=== PATIENT | male | born 1990 | race Caucasian/White ===

== ENCOUNTER 2016-03-23 15:13 | Inpatient (IN) | payer OTHER ==
[2016-03-23 16:39] VITALS: BMI 28.5
--- NOTE | 2016-03-23 17:56 | HP ---
COWS - Scale Resting Pulse: 0= [place] 80 or Below Sweatin=Flushed/Facial Moisture Restless Observation: 1= Difficult to Sit Still Pupil Size: 0= Normal to Room Light Bone or Joint Aches: 2= Severe Diffuse Aches Runny Nose/ Eye Tearin= Runny Nose/Eyes GI Upset > 30mins: 2= Nausea/Diarrhea Tremor Observation: 2= Slight Tremor Visible Yawning Observation: 2= >3x During Session Anxiety or Irritability: 2=Irritable/Anxious Goose Flesh Skin: 3=Piloerection COWS Score: 18 CIWA Score - CIWA Score Nausea/Vomitin-Mild Nausea/No Vomiting Muscle Tremors: 4-Moderate,w/Arms Extend Anxiety: 4-Mod. Anxious/Guarded Agitation: 4-Moderately Restless Paroxysmal Sweats: 3 Orientation: 0-Oriented Tacttile Disturbances: 0-None Auditory Disturbances: 0-None Visual Disturbances: 0-None Headache: 1-Very Mild CIWA-Ar Total Score: 17 Admission ROS S - HPI Chief Complaint: I am here to detox. Allergies/Adverse Reactions: Allergies Allergy/AdvReac Type Severity Reaction Status Date / Time No Known Allergies Allergy Verified 03/23/16 17:12 History of Present Illness: pt is a 25yr old male with a history of heroin and cocaine dependence seeking detox for treatment. Exam Limitations: No Limitations - Ebola screening Have you traveled outside of the country in the last 21 days: No Have you had contact with anyone from an Ebola affected area: No Have you been sick,other than usual withdrawal symptoms: No Do you have a fever: No - Review of Systems Constitutional: Chills, Diaphoresis, Loss of Appetite, Night Sweats, Unintentional Wgt. Loss EENT: reports: Tearing, Nose Congestion Respiratory: reports: No Symptoms reported Cardiac: reports: No Symptoms Reported GI: reports: Constipated, Poor Appetite, Poor Fluid Intake : reports: No Symptoms Reported Musculoskeletal: reports: Back Pain Integumentary: reports: Flushing, Sweating Neuro: reports: Headache, Tingling, Tremors Endocrine: reports: Excessive Sweating, Flushing, Intolerance to Cold, Intolerance to Heat Hematology: reports: No Symptoms Reported Psychiatric: reports: Judgement Intact, Mood/Affect Appropiate, Orientated x3, Agitated, Anxious Other Systems: Reviewed and Negative Patient History - Patient Medical History Hx Anemia: No Hx Asthma: No Hx Chronic Obstructive Pulmonary Disease (COPD): No Hx Cancer: No Hx Cardiac Disorders: No Hx Congestive Heart Failure: No Hx Hypertension: No Hx Hypercholesterolemia: No Hx Pacemaker: No HX Cerebrovascular Accident: No Hx Seizures: No Hx Dementia: No Hx Diabetes: No Hx Gastrointestinal Disorders: No Hx Liver Disease: No Hx Genitourinary Disorders: No Hx Sexually Transmitted Disorders: No Hx Renal Disease (ESRD): No Hx Thyroid Disease: No Hx Human Immunodeficiency Virus (HIV): No Hx Hepatitis C: No Hx Depression: Yes Hx Suicide Attempt: No (denies) Hx Bipolar Disorder: No Hx Schizophrenia: No - Patient Surgical History Past Surgical History: Yes Hx Neurologic Surgery: No Hx Cataract Extraction: No Hx Cardiac Surgery: No Hx Lung Surgery: No Hx Breast Surgery: No Hx Breast Biopsy: No Hx Abdominal Surgery: No Hx Appendectomy: Yes Hx Orthopedic Surgery: Yes (RT HAND) Anesthesia Reaction: No - PPD History Previous Implant?: Yes Documented Results: Negative w/o proof Implanted On Prior R Admission?: No PPD to be Administered?: No - Reproductive History Patient is a Female of Child Bearing Age (11 -55 yrs old): No - Smoking Cessation Smoking history: Current every day smoker Have you smoked in the past 12 months: Yes Aproximately how many cigarettes per day: 20 Hx Chewing Tobacco Use: No Initiated information on smoking cessation: Yes 'Breaking Loose' booklet given: 03/23/16 - Substance & Tx. History Hx Alcohol Use: No Hx Substance Use: Yes Substance Use Type: Cocaine, Heroin, Tranquilizers Hx Substance Use Treatment: Yes - Substances Abused Heroin Route: Injection Frequency: Daily Amount used: 20 BAGS Age of first use: 24 Date of Last Use: 03/22/16 Cocaine Route: Smoking Frequency: Daily Amount used: 3 bags Age of first use: 25 Date of Last Use: 03/23/16 Oxycodone Route: Oral Frequency: Daily Amount used: 200mg Age of first use: 24 Date of Last Use: 03/20/16 Family Disease History - Family Disease History Family History: Denies Admission Physical Exam BHS - Vital Signs Vital Signs: Vital Signs - 24 hr 03/23/16 16:36 Temperature 99.0 F Pulse Rate 77 Respiratory 20 Rate Blood Pressure 129/74 - Physical General Appearance: Yes: Appropriately Dressed, Moderate Distress, Tremorous, Irritable, Sweating, Anxious HEENTM: Yes: Hearing grossly Normal, Normal Voice Respiratory: Yes: Lungs Clear, Normal Breath Sounds, No Respiratory Distress Neck: Yes: No masses,lesions,Nodules Breast: Yes: Within Normal Limits, Breasts Symetrical Cardiology: Yes: Regular Rhythm, Regular Rate, S1, S2 Abdominal: Yes: Normal Bowel Sounds, Non Tender, Soft Genitourinary: Yes: Within Normal Limits Back: Yes: Normal Inspection Musculoskeletal: Yes: full range of Motion Extremities: Yes: Normal Capillary Refill, Tremors Neurological: Yes: Fully Oriented, Alert, Normal Response Integumentary: Yes: Normal Color, Diaphoresis, Track Yang Lymphatic: Yes: Within Normal Limits - Diagnostic (1) Opioid dependence with withdrawal Current Visit: Yes Status: Chronic (2) Cocaine dependence Current Visit: Yes Status: Chronic Qualifiers: Substance use status: uncomplicated Qualified Code(s): F14.20 - Cocaine dependence, uncomplicated (3) Nicotine dependence Current Visit: Yes Status: Chronic Qualifiers: Nicotine product type: cigarettes Substance use status: uncomplicated Qualified Code(s): F17.210 - Nicotine dependence, cigarettes, uncomplicated Cleared for Admission [facility] - Detox or Rehab [facility] Level of Care: Medically Managed Detox Regimen/Protocol: Methadone Urine Drug Screen - Results Drug Screen Negative: No Urine Drug Screen Results: NGHIA-Cocaine, OPI-Opiates, OXY-Oxycodone
[2016-03-23] MEDS ORDERED: P-EPHED 60MG/TRIPROLIDI 2.5MG TABLET PO PRN (18:01)
[2016-03-23] MEDS ORDERED: guaiFENesin/D-METHORPHAN HB 10 ML UNIT-DOSE CUPS PO PRN (18:01)
[2016-03-23] MEDS ORDERED: LOPERAMIDE HCL 2 MG CAPSULE PO PRN (18:01)
[2016-03-23] MEDS ORDERED: MAGNESIUM HYDROX 2400MG/30ML ORAL SUSPENSION 30 ML CUP PO PRN (18:01)
[2016-03-23] MEDS ORDERED: MAG HYDROX/AL HYDROX/SIMETH 30 ML UNIT-DOSE CUP PO PRN (18:01)
[2016-03-23] MEDS ORDERED: IBUPROFEN 600 MG TABLET (FP) PO PRN (18:01)
[2016-03-23] MEDS ORDERED: MENTHOL/PHENOL 1 EACH UD MM PRN (18:01)
[2016-03-23] MEDS ORDERED: hydrOXYzine PAMOATE 50 MG CAPSULE (FP) PO PRN (18:01)
[2016-03-23] MEDS ORDERED: MAGNESIUM CITRATE 300 ML BOTTLE PO PRN (18:01)
[2016-03-23] MEDS ORDERED: TRIMETHOBENZAMIDE HCL 300 MG CAPSULE PO PRN (18:03)
[2016-03-23] MEDS ORDERED: METHADONE HCL 10 MG TABLET (FOR DETOX USE ONLY) PO ONE ×2 (18:30→23:00)
[2016-03-23] MEDS: diazePAM 5 MG TABLET PO PRN ×2 (19:02→23:13)
[2016-03-23] MEDS: diphenhydrAMINE HCL 50 MG CAPSULE PO PRN (22:07)
[2016-03-23] MEDS: THIAMINE HCL 100 MG TABLET (FP) PO SCH (22:07)
[2016-03-23] MEDS: CYCLOBENZAPRINE HCL 10 MG TABLET (FP) PO PRN (22:09)
[2016-03-23] MEDS: NICOTINE POLACRILEX 4 MG GUM BC PRN (23:16)
[2016-03-24] MEDS: diphenhydrAMINE HCL 50 MG CAPSULE PO PRN (01:04)
[2016-03-24] MEDS: ACETAMINOPHEN 325 MG TABLET (FP) PO PRN ×3 (01:05→10:05)
[2016-03-24] MEDS: NICOTINE POLACRILEX 4 MG GUM BC PRN ×3 (01:06→10:04)
[2016-03-24 03:26] LABS: URINE APPEARANCE CLOUDY; URINE BILIRUBIN NEGATIVE (NEGATIVE); URINE BLOOD NEGATIVE (NEGATIVE); URINE COLOR YELLOW; URINE GLUCOSE (UA) NEGATIVE (NEGATIVE); URINE KETONE TRACE (NEGATIVE); URINE LEUK ESTERASE NEGATIVE (NEGATIVE); URINE NITRITE NEGATIVE (NEGATIVE); URINE PROTEIN NEGATIVE (NEGATIVE); URINE UROBILINOGEN NEGATIVE E.U./dl (0.2-1.0)
[2016-03-24] MEDS: diazePAM 5 MG TABLET PO PRN ×3 (06:00→21:08)
--- NOTE | 2016-03-24 09:25 | PN ---
[facility] CIWA - CIWA Score Nausea/Vomitin-Int. Nausea w/Dry Heave Muscle Tremors: 4-Moderate,w/Arms Extend Anxiety: 4-Mod. Anxious/Guarded Agitation: 4-Moderately Restless Paroxysmal Sweats: No Perspiration Orientation: 0-Oriented Tacttile Disturbances: 2-Mild Itch/Numbness/Burn Auditory Disturbances: 0-None Visual Disturbances: 0-None Headache: 3-Moderate CIWA-Ar Total Score: 21 [facility] COWS - Scale Resting Pulse: 0= [place] 80 or Below Sweatin= Chills/Flushing Restless Observation: 1= Difficult to Sit Still Pupil Size: 2= Moderately Dilated Bone or Joint Aches: 2= Severe Diffuse Aches Runny Nose/ Eye Tearin= Nasal Congestion GI Upset > 30mins: 2= Nausea/Diarrhea Tremor Observation of Outstretched Hands: 2= Slight Tremor Visible Yawning Observation: 1= 1-2x During Session Anxiety or Irritability: 1=Feels Anxious/Irritable Goose Flesh Skin: 3=Piloerection COWS Score: 16 [facility] Progress Note (SOAP) Subjective: Sweats, interrupted sleep, nausea, anxiety Objective: Vital Signs Temperature 97.6 F 03/24/16 06:51 Pulse Rate 65 03/24/16 06:51 Respiratory Rate 18 03/24/16 06:51 Blood Pressure 119/84 03/24/16 06:51 O2 Sat by Pulse Oximetry (%) Laboratory Last Values Urine Color Yellow 03/23/16 23:09 Urine Appearance Cloudy 03/23/16 23:09 Urine pH 7.0 (5.0-8.0) 03/23/16 23:09 Ur Specific [place] 1.026 (1.001-1.035) 03/23/16 23:09 Urine Protein Negative (NEGATIVE) 03/23/16 23:09 Urine Glucose (UA) Negative (NEGATIVE) 03/23/16 23:09 Urine Ketones Trace (NEGATIVE) H 03/23/16 23:09 Urine Blood Negative (NEGATIVE) 03/23/16 23:09 Urine Nitrite Negative (NEGATIVE) 03/23/16 23:09 Urine Bilirubin Negative (NEGATIVE) 03/23/16 23:09 Urine Urobilinogen Negative E.U./dl (0.2-1.0) 03/23/16 23:09 Ur Leukocyte Esterase Negative (NEGATIVE) 03/23/16 23:09 Labs noted Assessment: Withdrawal Symptoms Plan: Continue with Detox Protocol
[2016-03-24] MEDS ORDERED: METHADONE HCL 10 MG TABLET (FOR DETOX USE ONLY) PO ONE (10:00)
[2016-03-24] MEDS: PRENATAL VITAMINS W/ FOLIC ACID TABLET (FP) PO SCH (10:03)
[2016-03-24] MEDS: NICOTINE 21 MG/24 HOURS TOPICAL PATCH TD SCH (10:03)
[2016-03-24 11:18] LABS: MCH 26.9 pg (25.7-33.7); MCHC 32.8 g/dl (32.0-35.9); MEAN CELL VOLUME 81.9 fl (80-96); MEAN PLT VOLUME 9.6 fl (7.5-11.1); PLATELET COUNT 163 K/MM3 (134-434); RDW 13.2 % (11.9-15.9); WHITE BLOOD COUNT 5.2 K/mm3 (4.0-10.0)
[2016-03-24 11:22] LABS: ALBUMIN 4.3 g/dl (3.4-5.0); ALK PHOS 59 U/L (45-117); ANION GAP 7 (8-16); BILIRUBIN,TOTAL 0.6 mg/dL (0.2-1.0); CALCIUM 9.4 mg/dL (8.5-10.1); CO2 28 mmol/L (21-32); CREATININE 0.9 mg/dL (0.7-1.3); GLUCOSE,RANDOM 85 mg/dL (74-106); SGOT/AST 11 U/L (15-37); SGPT/ALT 27 U/L (12-78)
--- NOTE | 2016-03-24 13:38 | EKG ---
Test Reason : Blood Pressure : / mmHG Vent. Rate : 065 BPM Atrial Rate : 065 BPM P-R Int : 144 ms QRS Dur : 084 ms QT Int : 416 ms P-R-T Axes : 012 061 031 degrees QTc Int : 432 ms NORMAL SINUS RHYTHM POOR DATA QUALITY, INTERPRETATION MAY BE ADVERSELY AFFECTED NO PREVIOUS ECGS AVAILABLE Confirmed by YOVANI HAMMOND MD ([id number]) on 03/24/2016 1:37:53 PM Referred By: Parish Crump Confirmed By:YOVANI HAMMOND MD
[2016-03-24] MEDS: cloNIDine HCL 0.1 MG TABLET PO PRN (21:08)
[2016-03-24] MEDS: THIAMINE HCL 100 MG TABLET (FP) PO SCH (21:08)
[2016-03-24] MEDS: CYCLOBENZAPRINE HCL 10 MG TABLET (FP) PO PRN (21:08)
[2016-03-25] MEDS: diazePAM 5 MG TABLET PO PRN ×4 (03:11→22:27)
[2016-03-25] MEDS: cloNIDine HCL 0.1 MG TABLET PO PRN ×2 (03:11→22:28)
[2016-03-25] MEDS: ACETAMINOPHEN 325 MG TABLET (FP) PO PRN (03:11)
[2016-03-25] MEDS ORDERED: METHADONE HCL 5 MG TABLET (FOR DETOX USE ONLY) PO ONE (10:00)
[2016-03-25] MEDS: PRENATAL VITAMINS W/ FOLIC ACID TABLET (FP) PO SCH (10:04)
[2016-03-25] MEDS: NICOTINE 21 MG/24 HOURS TOPICAL PATCH TD SCH (10:05)
[2016-03-25] MEDS: CYCLOBENZAPRINE HCL 10 MG TABLET (FP) PO PRN ×2 (10:07→22:27)
--- NOTE | 2016-03-25 13:31 | PN ---
S COWS - Scale Resting Pulse: 0= [place] 80 or Below Sweatin=Flushed/Facial Moisture Restless Observation: 3= Extraneous Movement Pupil Size: 0= Normal to Room Light Bone or Joint Aches: 2= Severe Diffuse Aches Runny Nose/ Eye Tearin= Runny Nose/Eyes GI Upset > 30mins: 3= Vomiting/Diarrhea Tremor Observation of Outstretched Hands: 2= Slight Tremor Visible Yawning Observation: 0= None Anxiety or Irritability: 2=Irritable/Anxious Goose Flesh Skin: 0=Smooth Skin COWS Score: 16 [facility] Progress Note (SOAP) Subjective: Tremor, sweating, nausea, vomiting, abdominal cramps, interrupted sleep ( benadryl doesn't work, wants ambien) Objective: Last Vital Signs Temp Pulse Resp BP Pulse Ox 96.8 F L 79 18 99/65 03/25/16 13:22 03/25/16 13:22 03/25/16 13:22 03/25/16 13:22 Laboratory Tests 03/23/16 03/24/16 03/24/16 23:09 07:50 07:50 WBC 5.2 RBC 5.34 Hgb 14.4 Hct 43.8 MCV 81.9 MCHC 32.8 RDW 13.2 Plt Count 163 MPV 9.6 Sodium 139 Potassium 4.1 Chloride 104 Carbon Dioxide 28 Anion Gap 7 L BUN 15 Creatinine 0.9 Creat Clearance w eGFR > 60 Random Glucose 85 Calcium 9.4 Total Bilirubin 0.6 AST 11 L ALT 27 Alkaline Phosphatase 59 Total Protein 7.0 Albumin 4.3 Urine Color Yellow Urine Appearance Cloudy Urine pH 7.0 Ur Specific [place] 1.026 Urine Protein Negative Urine Glucose (UA) Negative Urine Ketones Trace H Urine Blood Negative Urine Nitrite Negative Urine Bilirubin Negative Urine Urobilinogen Negative Ur Leukocyte Esterase Negative RPR Titer 03/24/16 07:50 WBC RBC Hgb Hct MCV MCHC RDW Plt Count MPV Sodium Potassium Chloride Carbon Dioxide Anion Gap BUN Creatinine Creat Clearance w eGFR Random Glucose Calcium Total Bilirubin AST ALT Alkaline Phosphatase Total Protein Albumin Urine Color Urine Appearance Urine pH Ur Specific [place] Urine Protein Urine Glucose (UA) Urine Ketones Urine Blood Urine Nitrite Urine Bilirubin Urine Urobilinogen Ur Leukocyte Esterase RPR Titer Nonreactive Labs noted Assessment: 03/25/16 13:33 Withdrawal symptoms Plan: Continue detox, encouraged to drink more water
[2016-03-25] MEDS: THIAMINE HCL 100 MG TABLET (FP) PO SCH (22:27)
[2016-03-25] MEDS: ZOLPIDEM TARTRATE 5 MG TABLET PO PRN (22:28)
[2016-03-25] MEDS: NICOTINE POLACRILEX 4 MG GUM BC PRN (22:33)
[2016-03-26] MEDS: diazePAM 5 MG TABLET PO PRN (05:52)
[2016-03-26] MEDS: cloNIDine HCL 0.1 MG TABLET PO PRN ×2 (05:53→22:15)
[2016-03-26] MEDS ORDERED: METHADONE HCL 5 MG TABLET (FOR DETOX USE ONLY) PO ONE (10:00)
--- NOTE | 2016-03-26 10:01 | PN ---
[facility] Progress Note (SOAP) Subjective: Sweating,interrupted sleep,restless. Objective: 03/26/16 10:00 Vital Signs - 8 hr 03/26/16 03/26/16 03:25 06:18 Temperature 96.6 F L Pulse Rate 79 Respiratory 18 16 Rate Blood Pressure 107/69 Laboratory Tests 03/23/16 03/24/16 03/24/16 23:09 07:50 07:50 WBC 5.2 RBC 5.34 Hgb 14.4 Hct 43.8 MCV 81.9 MCHC 32.8 RDW 13.2 Plt Count 163 MPV 9.6 Sodium 139 Potassium 4.1 Chloride 104 Carbon Dioxide 28 Anion Gap 7 L BUN 15 Creatinine 0.9 Creat Clearance w eGFR > 60 Random Glucose 85 Calcium 9.4 Total Bilirubin 0.6 AST 11 L ALT 27 Alkaline Phosphatase 59 Total Protein 7.0 Albumin 4.3 Urine Color Yellow Urine Appearance Cloudy Urine pH 7.0 Ur Specific [place] 1.026 Urine Protein Negative Urine Glucose (UA) Negative Urine Ketones Trace H Urine Blood Negative Urine Nitrite Negative Urine Bilirubin Negative Urine Urobilinogen Negative Ur Leukocyte Esterase Negative RPR Titer 03/24/16 07:50 WBC RBC Hgb Hct MCV MCHC RDW Plt Count MPV Sodium Potassium Chloride Carbon Dioxide Anion Gap BUN Creatinine Creat Clearance w eGFR Random Glucose Calcium Total Bilirubin AST ALT Alkaline Phosphatase Total Protein Albumin Urine Color Urine Appearance Urine pH Ur Specific [place] Pool Urine Protein Urine Glucose (UA) Urine Ketones Urine Blood Urine Nitrite Urine Bilirubin Urine Urobilinogen Ur Leukocyte Esterase RPR Titer Nonreactive labs noted Assessment: 03/26/16 10:00 withdrawal sx. Plan: continue detox
[2016-03-26] MEDS: NICOTINE 21 MG/24 HOURS TOPICAL PATCH TD SCH (10:03)
[2016-03-26] MEDS: PRENATAL VITAMINS W/ FOLIC ACID TABLET (FP) PO SCH (10:03)
[2016-03-26] MEDS: NICOTINE POLACRILEX 4 MG GUM BC PRN ×2 (18:38→22:16)
[2016-03-26] MEDS: ZOLPIDEM TARTRATE 5 MG TABLET PO PRN (22:15)
[2016-03-26] MEDS: CYCLOBENZAPRINE HCL 10 MG TABLET (FP) PO PRN (22:15)
[2016-03-26] MEDS: THIAMINE HCL 100 MG TABLET (FP) PO SCH (22:15)
[2016-03-27] MEDS: CYCLOBENZAPRINE HCL 10 MG TABLET (FP) PO PRN (06:12)
[2016-03-27] MEDS: cloNIDine HCL 0.1 MG TABLET PO PRN (06:12)
[2016-03-27] MEDS ORDERED: METHADONE HCL 10 MG TABLET (FOR DETOX USE ONLY) PO ONE (10:00)
[2016-03-27] MEDS: PRENATAL VITAMINS W/ FOLIC ACID TABLET (FP) PO SCH (10:16)
[2016-03-27] MEDS: NICOTINE POLACRILEX 4 MG GUM BC PRN ×2 (10:17→22:08)
[2016-03-27] MEDS: NICOTINE 21 MG/24 HOURS TOPICAL PATCH TD SCH (10:17)
--- NOTE | 2016-03-27 10:42 | PN ---
[facility] Progress Note (SOAP) Subjective: ANXIETY,MUSCLE ACHES/CRAMPS, FATIGUE. Objective: 03/27/16 10:41 Vital Signs Temperature 98.0 F 03/27/16 09:38 Pulse Rate 81 03/27/16 09:38 Respiratory Rate 19 03/27/16 09:38 Blood Pressure 93/59 03/27/16 09:38 O2 Sat by Pulse Oximetry (%) Assessment: 03/27/16 10:42 WITHDRAWAL SX Plan: CONTINUE DETOX INCREASE PO FLUIDS.
[2016-03-27] MEDS ORDERED: ZOLPIDEM TARTRATE 10 MG TABLET (PARK CARE ONLY) PO PRN (18:58)
[2016-03-27] MEDS: THIAMINE HCL 100 MG TABLET (FP) PO SCH (22:06)
[2016-03-28] MEDS: CYCLOBENZAPRINE HCL 10 MG TABLET (FP) PO PRN (01:48)
[2016-03-28] MEDS ORDERED: METHADONE HCL 5 MG TABLET (FOR DETOX USE ONLY) PO ONE (06:00)
[2016-03-28 06:39] VITALS: BP 106/63; PULSE 76; TEMP 96.6
--- NOTE | 2016-03-28 09:42 | DS ---
[facility] Detox Discharge Summary Admission Date: 03/23/16 Discharge Date: 03/28/16 - History Present History: Cocaine Dependence, Opioid Dependence Additional Comments: PT COMPLETED DETOX. ALERT O X 3. NAD. Pertinent Past History: UNREMARKABLE - Physical Exam Results Vital Signs: Vital Signs Temperature 96.6 F L 03/28/16 06:38 Pulse Rate 76 03/28/16 06:38 Respiratory Rate 18 03/28/16 06:38 Blood Pressure 106/63 03/28/16 06:38 O2 Sat by Pulse Oximetry (%) Pertinent Admission Physical Exam Findings: WITHDRAWAL SX Laboratory Last Values WBC 5.2 K/mm3 (4.0-10.0) 03/24/16 07:50 RBC 5.34 M/mm3 (4.00-5.60) 03/24/16 07:50 Hgb 14.4 GM/dL (11.7-16.9) 03/24/16 07:50 Hct 43.8 % (35.4-49) 03/24/16 07:50 MCV 81.9 fl (80-96) 03/24/16 07:50 MCHC 32.8 g/dl (32.0-35.9) 03/24/16 07:50 RDW 13.2 % (11.9-15.9) 03/24/16 07:50 Plt Count 163 K/MM3 (134-434) 03/24/16 07:50 MPV 9.6 fl (7.5-11.1) 03/24/16 07:50 Sodium 139 mmol/L (136-145) 03/24/16 07:50 Potassium 4.1 mmol/L (3.5-5.1) 03/24/16 07:50 Chloride 104 mmol/L (98-107) 03/24/16 07:50 Carbon Dioxide 28 mmol/L (21-32) 03/24/16 07:50 Anion Gap 7 (8-16) L 03/24/16 07:50 BUN 15 mg/dL (7-18) 03/24/16 07:50 Creatinine 0.9 mg/dL (0.7-1.3) 03/24/16 07:50 Creat Clearance w eGFR > 60 (>60) 03/24/16 07:50 Random Glucose 85 mg/dL (74-106) 03/24/16 07:50 Calcium 9.4 mg/dL (8.5-10.1) 03/24/16 07:50 Total Bilirubin 0.6 mg/dL (0.2-1.0) 03/24/16 07:50 AST 11 U/L (15-37) L 03/24/16 07:50 ALT 27 U/L (12-78) 03/24/16 07:50 Alkaline Phosphatase 59 U/L (45-117) 03/24/16 07:50 Total Protein 7.0 g/dl (6.4-8.2) 03/24/16 07:50 Albumin 4.3 g/dl (3.4-5.0) 03/24/16 07:50 Urine Color Yellow 03/23/16 23:09 Urine Appearance Cloudy 03/23/16 23:09 Urine pH 7.0 (5.0-8.0) 03/23/16 23:09 Ur Specific [place] 1.026 (1.001-1.035) 03/23/16 23:09 Urine Protein Negative (NEGATIVE) 03/23/16 23:09 Urine Glucose (UA) Negative (NEGATIVE) 03/23/16 23:09 Urine Ketones Trace (NEGATIVE) H 03/23/16 23:09 Urine Blood Negative (NEGATIVE) 03/23/16 23:09 Urine Nitrite Negative (NEGATIVE) 03/23/16 23:09 Urine Bilirubin Negative (NEGATIVE) 03/23/16 23:09 Urine Urobilinogen Negative E.U./dl (0.2-1.0) 03/23/16 23:09 Ur Leukocyte Esterase Negative (NEGATIVE) 03/23/16 23:09 RPR Titer Nonreactive (NONREACTIVE) 03/24/16 07:50 - Treatment Hospital Course: Detox Protocol Followed, Detoxed Safely, Responded well, Discharged Condition Good - Medication Discharge Medications: Ambulatory Orders NK [No Known Home Medication] 03/23/16 - Diagnosis (1) Cocaine dependence Current Visit: Yes Status: Acute Qualifiers: Substance use status: uncomplicated Qualified Code(s): F14.20 - Cocaine dependence, uncomplicated (2) Nicotine dependence Current Visit: Yes Status: Chronic Qualifiers: Nicotine product type: cigarettes Substance use status: uncomplicated Qualified Code(s): F17.210 - Nicotine dependence, cigarettes, uncomplicated (3) Opioid dependence with withdrawal Current Visit: Yes Status: Acute - AMA Did Patient Leave Against Medical Advice: No
== END 2016-03-28 09:19 | disposition home or self-care (01) | DRG 773 ==
LOC: YASAS 15:13 → Y3N 18:20
PROVIDERS: ADMIT Internal Medicine; ATTEND Internal Medicine
PROC: HZ2ZZZZ Detoxification Services for Substance Abuse Treatment (ICD-10-PCS; principal; 2016-03-28)
DX: F11.23 Opioid dependence with withdrawal (principal); F14.20 Cocaine dependence, uncomplicated; F17.210 Nicotine dependence, cigarettes, uncomplicated
CPT/HCPCS: 36415; 80053; 81003; 85027; 86593; 93005; 93010

== ENCOUNTER 2016-05-03 12:27 | Inpatient (IN) | payer OTHER ==
[2016-05-03 13:52] VITALS: BMI 28.3
--- NOTE | 2016-05-03 16:31 | HP ---
CIWA Score - CIWA Score Nausea/Vomitin Muscle Tremors: 3 Anxiety: 3 Agitation: 3 Paroxysmal Sweats: 3 Orientation: 0-Oriented Tacttile Disturbances: 2-Mild Itch/Numbness/Burn Auditory Disturbances: 2-Mild Harshness/Frighten Visual Disturbances: 2-Mild Sensitivity Headache: 2-Mild CIWA-Ar Total Score: 23 Admission ROS BHS - HPI Chief Complaint: I NEED HELP TO STOP DRINKING ALCOHOL AND DRUGS Allergies/Adverse Reactions: Allergies Allergy/AdvReac Type Severity Reaction Status Date / Time No Known Allergies Allergy Verified 05/03/16 16:38 History of Present Illness: THIS 25 YEARS OLD MALE WITH ALCOHOL DEPENDENCE,DSA,HEORIN,COCAINE,WITHDRAWAL SYMPTOM,LAST DETOX [facility] T0 03/23/16 TO 03/28/16 MMTP 80 MGS/DAY LAST MEDICATED TODAY SYNCOPE NICOTINE DEPENDENCE LONGEST PERIOD OF SOBRIETY 3 MONTHS ANXIETY AND DEPRESSION Exam Limitations: No Limitations - Ebola screening Have you traveled outside of the country in the last 21 days: No Have you had contact with anyone from an Ebola affected area: No Have you been sick,other than usual withdrawal symptoms: No - Review of Systems Constitutional: Chills, Diaphoresis, Loss of Appetite, Malaise, Night Sweats, Changes in sleep, Unintentional Wgt. Loss EENT: reports: Tearing, Nose Congestion Respiratory: reports: No Symptoms reported GI: reports: Diarrhea, Nausea, Vomiting, Abdominal cramping : reports: No Symptoms Reported Musculoskeletal: reports: Back Pain, Joint Pain, Muscle Pain, Joint Stiffness Integumentary: reports: Dryness Neuro: reports: Headache, Tremors Endocrine: reports: No Symptoms Reported Hematology: reports: No Symptoms Reported Psychiatric: reports: No Sypmtoms Reported, Judgement Intact, Mood/Affect Appropiate, Orientated x3, Anxious, Depressed Patient History - Patient Medical History Hx Anemia: No Hx Asthma: No Hx Chronic Obstructive Pulmonary Disease (COPD): No Hx Cancer: No Hx Cardiac Disorders: No Hx Congestive Heart Failure: No Hx Hypertension: No Hx Hypercholesterolemia: No Hx Pacemaker: No HX Cerebrovascular Accident: No Hx Seizures: No Hx Dementia: No Hx Diabetes: No Hx Gastrointestinal Disorders: No Hx Liver Disease: No Hx Genitourinary Disorders: No Hx Sexually Transmitted Disorders: No Hx Renal Disease (ESRD): No Hx Thyroid Disease: No Hx Human Immunodeficiency Virus (HIV): No (LAST 03/30 NEGATIVE) Hx Hepatitis C: No Hx Depression: Yes (ANXIETY,INSOMNIA) Hx Suicide Attempt: No (denies) Hx Bipolar Disorder: No Hx Schizophrenia: No Other Medical History: NO SUICIDAL,NO HOMICIDAL - Patient Surgical History Past Surgical History: Yes Hx Neurologic Surgery: No Hx Cataract Extraction: No Hx Cardiac Surgery: No Hx Lung Surgery: No Hx Breast Surgery: No Hx Breast Biopsy: No Hx Abdominal Surgery: No Hx Appendectomy: Yes (AT AGE 20) Hx Orthopedic Surgery: Yes (RT HAND 2015) Anesthesia Reaction: No - PPD History Previous Implant?: Yes Documented Results: Negative w/proof Date: 03/25/16 Results: 0 MM PPD to be Administered?: No - Smoking Cessation Smoking history: Current every day smoker Have you smoked in the past 12 months: Yes Aproximately how many cigarettes per day: 20 Hx Chewing Tobacco Use: No Initiated information on smoking cessation: Yes 'Breaking Loose' booklet given: 05/03/16 - Substance & Tx. History Hx Alcohol Use: Yes Hx Substance Use: No Substance Use Type: Alcohol, Cocaine, Heroin Hx Substance Use Treatment: Yes ([facility] 03/23/16 TO 03/28/16) - Substances Abused Alcohol Route: Oral Frequency: Daily Amount used: 1/5TH OF SCOTCH/6 PACKS OF 12 OZS OF BEER Age of first use: 15 Date of Last Use: 05/03/16 Cocaine Route: Inhalation Frequency: 3-6 times per week Amount used: 50$ Age of first use: 21 Date of Last Use: 05/01/16 Heroin Route: Injection Frequency: Daily Amount used: 10 BAGS Age of first use: 24 Date of Last Use: 05/03/16 Family Disease History - Family Disease History Family Disease History: Heart Disease: Father ([place] ) Admission Physical Exam S - Vital Signs Vital Signs: Vital Signs - 24 hr 05/03/16 13:49 Temperature 98.0 F Pulse Rate 63 Respiratory 18 Rate Blood Pressure 131/80 - Physical General Appearance: Yes: Moderate Distress, Tremorous, Irritable, Sweating, Anxious HEENTM: Yes: BEATRIZ, Pharynx Normal, Nasal Congestion Respiratory: Yes: Lungs Clear, Normal Breath Sounds, No Respiratory Distress Neck: Yes: Within Normal Limits, Supple, Trachea in good position Breast: Yes: Within Normal Limits Cardiology: Yes: Within Normal Limits, Regular Rhythm, Regular Rate, S1, S2 Abdominal: Yes: Within Normal Limits, Normal Bowel Sounds, Non Tender, Flat, Soft Genitourinary: Yes: Within Normal Limits Back: Yes: Muscle Spasm Musculoskeletal: Yes: Back pain, Joint Stiffness, Muscle Pain Extremities: Yes: Normal Range of Motion, Tremors Neurological: Yes: Within Normal Limits, certified first assistant II-XII NML intact, Fully Oriented, Alert, Motor Strength 5/5 Integumentary: Yes: Dry Lymphatic: Yes: Within Normal Limits - Diagnostic (1) Alcohol dependence with uncomplicated withdrawal Current Visit: Yes Status: Acute (2) Cocaine dependence Current Visit: No Status: Acute Qualifiers: Substance use status: uncomplicated Qualified Code(s): F14.20 - Cocaine dependence, uncomplicated (3) Nicotine dependence Current Visit: No Status: Chronic Qualifiers: Nicotine product type: cigarettes Substance use status: uncomplicated Qualified Code(s): F17.210 - Nicotine dependence, cigarettes, uncomplicated (4) Methadone maintenance therapy patient Current Visit: Yes Status: Acute (5) Opioid dependence Current Visit: Yes Status: Acute (6) Syncope Current Visit: Yes Status: Acute (7) Anxiety and depression Current Visit: Yes Status: Acute Cleared for Admission [facility] - Detox or Rehab [facility] Level of Care: Medically Managed Detox Regimen/Protocol: Librium [facility] Breath Alcohol Content Breath Alcohol Content: 0.032 Urine Drug Screen - Results Drug Screen Negative: No Urine Drug Screen Results: NGHIA-Cocaine, OPI-Opiates, BZO-Benzodiazepines, MTD- Methadone
[2016-05-03] MEDS ORDERED: IBUPROFEN 400 MG TABLET (FP) PO PRN (16:45)
[2016-05-03] MEDS ORDERED: MENTHOL/PHENOL 1 EACH UD MM PRN (16:45)
[2016-05-03] MEDS ORDERED: MAGNESIUM CITRATE 300 ML BOTTLE PO PRN (16:45)
[2016-05-03] MEDS ORDERED: ACETAMINOPHEN 325 MG TABLET (FP) PO PRN (16:45)
[2016-05-03] MEDS ORDERED: MAG HYDROX/AL HYDROX/SIMETH 30 ML UNIT-DOSE CUP PO PRN (16:45)
[2016-05-03] MEDS ORDERED: MAGNESIUM HYDROX 2400MG/30ML ORAL SUSPENSION 30 ML CUP PO PRN (16:45)
[2016-05-03] MEDS ORDERED: guaiFENesin/D-METHORPHAN HB 10 ML UNIT-DOSE CUPS PO PRN (16:45)
[2016-05-03] MEDS ORDERED: LOPERAMIDE HCL 2 MG CAPSULE PO PRN (16:45)
[2016-05-03] MEDS ORDERED: P-EPHED 60MG/TRIPROLIDI 2.5MG TABLET PO PRN (16:45)
[2016-05-03] MEDS ORDERED: diphenhydrAMINE HCL 50 MG CAPSULE PO PRN (16:45)
[2016-05-03] MEDS: chlordiazePOXIDE HCL 25 MG CAPSULE PO PRN (20:47)
[2016-05-03] MEDS ORDERED: chlordiazePOXIDE HCL 25 MG CAPSULE PO ONE (21:00)
[2016-05-03] MEDS: cloNIDine HCL 0.1 MG TABLET PO SCH (22:41)
[2016-05-03] MEDS: chlordiazePOXIDE HCL 25 MG CAPSULE PO SCH (22:41)
[2016-05-03] MEDS: THIAMINE HCL 100 MG TABLET (FP) PO SCH (22:47)
[2016-05-04 00:38] LABS: URINE APPEARANCE CLEAR; URINE BILIRUBIN NEGATIVE (NEGATIVE); URINE BLOOD NEGATIVE (NEGATIVE); URINE COLOR YELLOW; URINE GLUCOSE (UA) NEGATIVE (NEGATIVE); URINE KETONE NEGATIVE (NEGATIVE); URINE LEUK ESTERASE NEGATIVE (NEGATIVE); URINE NITRITE NEGATIVE (NEGATIVE); URINE PROTEIN NEGATIVE (NEGATIVE); URINE UROBILINOGEN NEGATIVE E.U./dl (0.2-1.0)
[2016-05-04] MEDS: chlordiazePOXIDE HCL 25 MG CAPSULE PO SCH ×4 (05:19→22:49)
[2016-05-04] MEDS ORDERED: METHADONE HCL 40 MG DISPERSABLE TABLET PO ONE (08:00)
[2016-05-04 10:15] LABS: MCH 26.8 pg (25.7-33.7); MCHC 32.9 g/dl (32.0-35.9); MEAN CELL VOLUME 81.5 fl (80-96); MEAN PLT VOLUME 10.4 fl (7.5-11.1); PLATELET COUNT 171 K/MM3 (134-434)
--- NOTE | 2016-05-04 10:23 | EKG ---
Test Reason : Blood Pressure : / mmHG Vent. Rate : 056 BPM Atrial Rate : 056 BPM P-R Int : 148 ms QRS Dur : 090 ms QT Int : 448 ms P-R-T Axes : 025 063 043 degrees QTc Int : 432 ms SINUS BRADYCARDIA WHEN COMPARED WITH ECG OF 23-MAR-2016 19:09, NO SIGNIFICANT CHANGE WAS FOUND Confirmed by YOVANI HAMMOND MD ([id number]) on 05/04/2016 10:23:00 AM Referred By: Confirmed By:YOVANI HAMMOND MD
[2016-05-04] MEDS: cloNIDine HCL 0.1 MG TABLET PO SCH ×2 (10:35→22:49)
[2016-05-04] MEDS: NICOTINE POLACRILEX 2 MG GUM BC PRN ×3 (10:35→22:52)
[2016-05-04] MEDS: PRENATAL VITAMINS W/ FOLIC ACID TABLET (FP) PO SCH (10:35)
[2016-05-04 11:47] LABS: ALBUMIN 4.6 g/dl (3.4-5.0); ALK PHOS 72 U/L (45-117); ANION GAP 12 (8-16); BILIRUBIN,TOTAL 0.7 mg/dL (0.2-1.0); CALCIUM 9.5 mg/dL (8.5-10.1); CO2 26 mmol/L (21-32); CREATININE 0.8 mg/dL (0.7-1.3); GLUCOSE,RANDOM 78 mg/dL (74-106); SGOT/AST 19 U/L (15-37); SGPT/ALT 39 U/L (12-78); TOT PROT 7.6 g/dl (6.4-8.2)
--- NOTE | 2016-05-04 12:47 | PN ---
[facility] CIWA - CIWA Score Nausea/Vomitin Muscle Tremors: 3 Anxiety: 3 Agitation: 2 Paroxysmal Sweats: 1-Minimal Palms Moist Orientation: 0-Oriented Tacttile Disturbances: 1-Very Mild Itch/Numbness Auditory Disturbances: 1-Very Mild Visual Disturbances: 1-Very Mild Sensitivity Headache: 2-Mild CIWA-Ar Total Score: 17 S Progress Note (SOAP) Subjective: ALERT,IRRITABLE,ANXIOUS,INTERRUPTED SLEEP,TREMOR,PAIN IN THE BODY AND BACK Objective: 05/04/16 12:46 Vital Signs Temperature 99.3 F 05/04/16 10:15 Pulse Rate 79 05/04/16 10:15 Respiratory Rate 0 L 05/04/16 10:15 Blood Pressure 105/67 05/04/16 10:15 O2 Sat by Pulse Oximetry (%) EKG SINUS BRADYCARDIA 57 /MIN NO CHEST PAIN,NO SOB,NO DIZZINESS Laboratory Last Values WBC 8.0 K/mm3 (4.0-10.0) D 05/04/16 06:00 RBC 5.58 M/mm3 (4.00-5.60) 05/04/16 06:00 Hgb 15.0 GM/dL (11.7-16.9) 05/04/16 06:00 Hct 45.5 % (35.4-49) 05/04/16 06:00 MCV 81.5 fl (80-96) 05/04/16 06:00 MCHC 32.9 g/dl (32.0-35.9) 05/04/16 06:00 RDW 13.0 % (11.9-15.9) 05/04/16 06:00 Plt Count 171 K/MM3 (134-434) 05/04/16 06:00 MPV 10.4 fl (7.5-11.1) 05/04/16 06:00 Sodium 141 mmol/L (136-145) 05/04/16 06:00 Potassium 4.5 mmol/L (3.5-5.1) 05/04/16 06:00 Chloride 103 mmol/L (98-107) 05/04/16 06:00 Carbon Dioxide 26 mmol/L (21-32) 05/04/16 06:00 Anion Gap 12 (8-16) 05/04/16 06:00 BUN 15 mg/dL (7-18) 05/04/16 06:00 Creatinine 0.8 mg/dL (0.7-1.3) 05/04/16 06:00 Creat Clearance w eGFR > 60 (>60) 05/04/16 06:00 Random Glucose 78 mg/dL (74-106) 05/04/16 06:00 Calcium 9.5 mg/dL (8.5-10.1) 05/04/16 06:00 Total Bilirubin 0.7 mg/dL (0.2-1.0) 05/04/16 06:00 AST 19 U/L (15-37) D 05/04/16 06:00 ALT 39 U/L (12-78) D 05/04/16 06:00 Alkaline Phosphatase 72 U/L (45-117) D 05/04/16 06:00 Total Protein 7.6 g/dl (6.4-8.2) 05/04/16 06:00 Albumin 4.6 g/dl (3.4-5.0) 05/04/16 06:00 Urine Color Yellow 05/03/16 23:30 Urine Appearance Clear 05/03/16 23:30 Urine pH 5.0 (5.0-8.0) D 05/03/16 23:30 Ur Specific [place] 1.027 (1.001-1.035) 05/03/16 23:30 Urine Protein Negative (NEGATIVE) 05/03/16 23:30 Urine Glucose (UA) Negative (NEGATIVE) 05/03/16 23:30 Urine Ketones Negative (NEGATIVE) 05/03/16 23:30 Urine Blood Negative (NEGATIVE) 05/03/16 23:30 Urine Nitrite Negative (NEGATIVE) 05/03/16 23:30 Urine Bilirubin Negative (NEGATIVE) 05/03/16 23:30 Urine Urobilinogen Negative E.U./dl (0.2-1.0) 05/03/16 23:30 Ur Leukocyte Esterase Negative (NEGATIVE) 05/03/16 23:30 RPR Titer Nonreactive (NONREACTIVE) 05/04/16 06:00 Assessment: 05/04/16 12:47 WITHDRAWAL SYMPTOM Plan: CONTINUE DETOX
[2016-05-04] MEDS: CYCLOBENZAPRINE HCL 10 MG TABLET (FP) PO PRN (13:22)
[2016-05-04] MEDS: chlordiazePOXIDE HCL 25 MG CAPSULE PO PRN (13:22)
--- NOTE | 2016-05-04 15:56 | CONSULT ---
[facility] Psychiatric Consult - Data Date of interview: 05/04/16 Admission source: [facility] Identifying data: Readmission to [facility] for this 25 y/o male seeking detox treatment for alcohol,cocaine and heroin dependence.Patient is single without children,domiciled,unemployed and dependent on relatives for financial support. Substance Abuse History: - Smoking Cessation. Smoking history: Current every day smoker. Have you smoked in the past 12 months: Yes. Aproximately how many cigarettes per day: 20. Hx Chewing Tobacco Use: No. Initiated information on smoking cessation: Yes. 'Breaking Loose' booklet given: 05/03/16. - Substance & Tx. History. Hx Alcohol Use: Yes. Hx Substance Use: No. Substance Use Type : Alcohol, Cocaine, Heroin. Hx Substance Use Treatment: Yes ([facility] 03/23/16 TO 03/28/16). - Substances Abused. Alcohol. Route: Oral. Frequency: Daily. Amount used: 1/5TH OF SCOTCH/6 PACKS OF 12 OZS OF BEER. Age of first use: 15. Date of Last Use: 05/03/16. Cocaine. Route: Inhalation. Frequency: 3-6 times per week. Amount used: 50$. Age of first use: 21. Date of Last Use: . Heroin. Route: Injection. Frequency: Daily. Amount used: 10 BAGS. Age of first use: 24. Date of Last Use: 05/03/16. Confirmed by patient. Medical History: Patient endorses good general health.Noted history of appendectomy and orthosurgery for fracture of right hand (2014). Psychiatric History: Patient denies history of psychiatric hospitalizations.Mr Valle is currently on methadone maintenance at [facility]- MMTP program (80 mg/day). Physical/Sexual Abuse/Trauma History: Patient denies. Additional Comment: Urine Drug Screen Results: NGHIA-Cocaine, OPI-Opiates, BZO- Benzodiazepines, MTD-Methadone.Noted. Mental Status Exam - Mental Status Exam Alert and Oriented to: Time, Place, Person Cognitive Function: Good Patient Appearance: Well Groomed Mood: Hopeful, Euthymic Affect: Appropriate, Normal Range Patient Behavior: Fatigued, Appropriate, Cooperative Speech Pattern: Clear Voice Loudness: Normal Thought Process: Goal Oriented Thought Disorder: Not Present Hallucinations: Denies Suicidal Ideation: Denies Homicidal Ideation: Denies Insight/Judgement: Poor Sleep: Poorly, Difficulty falling asleep Appetite: Good Muscle strength/Tone: Normal Gait/Station: Normal Psychiatric Findings - Problem List ([place] 1, 2,3) (1) Alcohol dependence with uncomplicated withdrawal Current Visit: Yes Status: Acute (2) Cocaine dependence Current Visit: Yes Status: Acute Qualifiers: Substance use status: uncomplicated Qualified Code(s): F14.20 - Cocaine dependence, uncomplicated (3) Opioid dependence with withdrawal Current Visit: Yes Status: Acute (4) Nicotine dependence Current Visit: No Status: Chronic Qualifiers: Nicotine product type: cigarettes Substance use status: uncomplicated Qualified Code(s): F17.210 - Nicotine dependence, cigarettes, uncomplicated (5) Methadone maintenance therapy patient Current Visit: Yes Status: Acute (6) Substance induced mood disorder Current Visit: Yes Status: Acute (7) Insomnia Current Visit: Yes Status: Acute - Initial Treatment Plan Initial Treatment Plan: Psychoeducation.Detoxification.Zolpidem 10 mg po hs prn.Patient is made aware of the risk of parasomnias.Consent (verbal) given for this careplan.Observation.
[2016-05-04] MEDS: ZOLPIDEM TARTRATE 10 MG TABLET (PARK CARE ONLY) PO PRN (22:49)
[2016-05-04] MEDS: THIAMINE HCL 100 MG TABLET (FP) PO SCH (22:50)
[2016-05-05] MEDS: chlordiazePOXIDE HCL 25 MG CAPSULE PO SCH ×3 (05:57→17:20)
[2016-05-05] MEDS: METHADONE HCL 40 MG DISPERSABLE TABLET PO SCH (05:57)
[2016-05-05] MEDS: CYCLOBENZAPRINE HCL 10 MG TABLET (FP) PO PRN ×2 (06:01→17:22)
[2016-05-05] MEDS: NICOTINE POLACRILEX 2 MG GUM BC PRN (10:38)
[2016-05-05] MEDS: cloNIDine HCL 0.1 MG TABLET PO SCH ×2 (10:38→22:25)
[2016-05-05] MEDS: PRENATAL VITAMINS W/ FOLIC ACID TABLET (FP) PO SCH (10:38)
--- NOTE | 2016-05-05 10:57 | PN ---
S CIWA - CIWA Score Nausea/Vomitin Muscle Tremors: 3 Anxiety: 2 Agitation: 2 Paroxysmal Sweats: 1-Minimal Palms Moist Orientation: 0-Oriented Tacttile Disturbances: 1-Very Mild Itch/Numbness Auditory Disturbances: 1-Very Mild Visual Disturbances: 1-Very Mild Sensitivity Headache: 2-Mild CIWA-Ar Total Score: 16 [facility] Progress Note (SOAP) Subjective: ALERT,IRRITABLE,ANXIOUS,INTERRUPTED SLEEP,TREMOR Objective: 05/05/16 10:56 Vital Signs Temperature 98.1 F 05/05/16 09:55 Pulse Rate 102 H 05/05/16 09:55 Respiratory Rate 6 L 05/05/16 09:55 Blood Pressure 123/59 05/05/16 09:55 O2 Sat by Pulse Oximetry (%) Assessment: 05/05/16 10:56 WITHDRAWAL SYMPTOM Plan: CONTINUE DETOX
[2016-05-05] MEDS: THIAMINE HCL 100 MG TABLET (FP) PO SCH (22:25)
[2016-05-05] MEDS: ZOLPIDEM TARTRATE 10 MG TABLET (PARK CARE ONLY) PO PRN (22:25)
[2016-05-05] MEDS: chlordiazePOXIDE 5 MG CAPSULE PO SCH (22:25)
[2016-05-06] MEDS: chlordiazePOXIDE 5 MG CAPSULE PO SCH ×3 (05:57→17:40)
[2016-05-06] MEDS: METHADONE HCL 40 MG DISPERSABLE TABLET PO SCH (05:58)
[2016-05-06] MEDS: CYCLOBENZAPRINE HCL 10 MG TABLET (FP) PO PRN ×2 (06:02→13:43)
[2016-05-06] MEDS: PRENATAL VITAMINS W/ FOLIC ACID TABLET (FP) PO SCH (10:32)
[2016-05-06] MEDS: NICOTINE POLACRILEX 2 MG GUM BC PRN ×2 (10:33→22:31)
[2016-05-06] MEDS: cloNIDine HCL 0.1 MG TABLET PO SCH ×2 (10:33→22:29)
[2016-05-06] MEDS: chlordiazePOXIDE HCL 25 MG CAPSULE PO PRN (13:43)
--- NOTE | 2016-05-06 14:59 | PN ---
[facility] Progress Note (SOAP) Subjective: Body aches, rhinorrhea, diarrhea, chills, interrupted sleep Objective: 05/06/16 14:57 Last Vital Signs Temp Pulse Resp BP Pulse Ox 98.6 F 71 18 102/62 05/06/16 13:52 05/06/16 13:52 05/06/16 13:52 05/06/16 13:52 Laboratory Tests 05/03/16 05/04/16 05/04/16 23:30 06:00 06:00 WBC 8.0 D RBC 5.58 Hgb 15.0 Hct 45.5 MCV 81.5 MCHC 32.9 RDW 13.0 Plt Count 171 MPV 10.4 Sodium 141 Potassium 4.5 Chloride 103 Carbon Dioxide 26 Anion Gap 12 BUN 15 Creatinine 0.8 Creat Clearance w eGFR > 60 Random Glucose 78 Calcium 9.5 Total Bilirubin 0.7 AST 19 D ALT 39 D Alkaline Phosphatase 72 D Total Protein 7.6 Albumin 4.6 Urine Color Yellow Urine Appearance Clear Urine pH 5.0 D Ur Specific [place] 1.027 Urine Protein Negative Urine Glucose (UA) Negative Urine Ketones Negative Urine Blood Negative Urine Nitrite Negative Urine Bilirubin Negative Urine Urobilinogen Negative Ur Leukocyte Esterase Negative RPR Titer 05/04/16 06:00 WBC RBC Hgb Hct MCV MCHC RDW Plt Count MPV Sodium Potassium Chloride Carbon Dioxide Anion Gap BUN Creatinine Creat Clearance w eGFR Random Glucose Calcium Total Bilirubin AST ALT Alkaline Phosphatase Total Protein Albumin Urine Color Urine Appearance Urine pH Ur Specific [place] Urine Protein Urine Glucose (UA) Urine Ketones Urine Blood Urine Nitrite Urine Bilirubin Urine Urobilinogen Ur Leukocyte Esterase RPR Titer Nonreactive Labs noted Assessment: 05/06/16 14:59 Withdrawal symptoms Plan: Continue detox
[2016-05-06] MEDS: chlordiazePOXIDE HCL 10 MG CAPSULE PO SCH (22:28)
[2016-05-06] MEDS: ZOLPIDEM TARTRATE 10 MG TABLET (PARK CARE ONLY) PO PRN (22:28)
[2016-05-06] MEDS: THIAMINE HCL 100 MG TABLET (FP) PO SCH (22:28)
[2016-05-07] MEDS: METHADONE HCL 40 MG DISPERSABLE TABLET PO SCH (05:39)
[2016-05-07] MEDS: chlordiazePOXIDE HCL 10 MG CAPSULE PO SCH ×2 (05:39→10:47)
[2016-05-07] MEDS: CYCLOBENZAPRINE HCL 10 MG TABLET (FP) PO PRN (05:42)
[2016-05-07] MEDS: NICOTINE POLACRILEX 2 MG GUM BC PRN (05:43)
--- NOTE | 2016-05-07 08:48 | DS ---
[facility] Detox Discharge Summary Admission Date: 05/03/16 Discharge Date: 05/07/16 - History Present History: Alcohol Dependence, Cocaine Dependence, MMTP - Physical Exam Results Vital Signs: Vital Signs Temperature 96.3 F L 05/07/16 05:56 Pulse Rate 62 05/07/16 05:56 Respiratory Rate 16 05/07/16 05:56 Blood Pressure 100/67 05/07/16 05:56 O2 Sat by Pulse Oximetry (%) - Treatment Hospital Course: Detox Protocol Followed, Detoxed Safely, Responded well, Discharged Condition Good, Rehab Referral Accepted - Medication Discharge Medications: Ambulatory Orders NK [No Known Home Medication] 03/23/16 - AMA Did Patient Leave Against Medical Advice: No
[2016-05-07 10:22] VITALS: BP 107/56; PULSE 93; TEMP 98.1
[2016-05-07] MEDS: cloNIDine HCL 0.1 MG TABLET PO SCH (10:47)
[2016-05-07] MEDS: PRENATAL VITAMINS W/ FOLIC ACID TABLET (FP) PO SCH (10:47)
== END 2016-05-07 10:55 | disposition home or self-care (01) | DRG 773 ==
LOC: YASAS 12:27 → Y6N 20:00
PROVIDERS: ADMIT Internal Medicine Addiction Medicine; ATTEND Internal Medicine Addiction Medicine
PROC: HZ2ZZZZ Detoxification Services for Substance Abuse Treatment (ICD-10-PCS; principal; 2016-05-03)
DX: F10.230 Alcohol dependence with withdrawal, uncomplicated (principal); F11.20 Opioid dependence, uncomplicated; F14.20 Cocaine dependence, uncomplicated; F17.210 Nicotine dependence, cigarettes, uncomplicated; F19.24 Other psychoactive substance dependence with psychoactive substance-induced mood disorder; F41.8 Other specified anxiety disorders; G47.00 Insomnia, unspecified; R00.1 Bradycardia, unspecified
CPT/HCPCS: 36415; 80053; 81003; 85027; 86593; 93005; 93010

== ENCOUNTER 2016-05-07 17:22 | Inpatient (IN) | payer OTHER ==
[2016-05-07 20:03] VITALS: BMI 30.1
--- NOTE | 2016-05-07 20:48 | HP ---
[facility] Rehab Assess/Revision - Admission History Admitted to Rehab from: [facility] Date of Admission to Rehab: 05/07/16 - Vital signs Vital Signs: Vital Signs Period Temp Pulse Resp BP Sys/Phillips Pulse Ox Last 24 Hr 96.0 F 72 20 132/75 - Findings Detox History & Physical reviewed: Yes Concur with findings: Yes Comments/Additional Findings: DENIES SIGNIFICANT CHANGE ON MENTAL + PHYSICAL. ADMITTED TO REHAB
[2016-05-07] MEDS ORDERED: guaiFENesin/D-METHORPHAN HB 10 ML UNIT-DOSE CUPS PO PRN (20:49)
[2016-05-07] MEDS ORDERED: ACETAMINOPHEN 325 MG TABLET (FP) PO PRN (20:49)
[2016-05-07] MEDS ORDERED: MAGNESIUM CITRATE 300 ML BOTTLE PO PRN (20:49)
[2016-05-07] MEDS ORDERED: IBUPROFEN 400 MG TABLET (FP) PO PRN (20:49)
[2016-05-07] MEDS ORDERED: diphenhydrAMINE HCL 50 MG CAPSULE PO PRN (20:49)
[2016-05-07] MEDS ORDERED: MENTHOL/PHENOL 1 EACH UD MM PRN (20:49)
[2016-05-07] MEDS ORDERED: MAGNESIUM HYDROX 2400MG/30ML ORAL SUSPENSION 30 ML CUP PO PRN (20:49)
[2016-05-07] MEDS ORDERED: P-EPHED 60MG/TRIPROLIDI 2.5MG TABLET PO PRN (20:49)
[2016-05-07] MEDS: THIAMINE HCL 100 MG TABLET (FP) PO SCH (22:42)
[2016-05-08] MEDS: METHADONE HCL 40 MG DISPERSABLE TABLET PO SCH (06:08)
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
[2016-05-08] MEDS: PRENATAL VITAMINS W/ FOLIC ACID TABLET (FP) PO SCH (10:40)
[2016-05-08] MEDS: NICOTINE 21 MG/24 HOURS TOPICAL PATCH TD SCH (10:42)
--- NOTE | 2016-05-08 13:42 | EKG ---
Test Reason : Blood Pressure : / mmHG Vent. Rate : 063 BPM Atrial Rate : 063 BPM P-R Int : 158 ms QRS Dur : 086 ms QT Int : 416 ms P-R-T Axes : 026 060 037 degrees QTc Int : 425 ms NORMAL SINUS RHYTHM NORMAL ECG WHEN COMPARED WITH ECG OF 03-MAY-2016 19:27, NO SIGNIFICANT CHANGE WAS FOUND Confirmed by ELISE SHELTON MD ([id number]) on 05/08/2016 1:41:46 PM Referred By: Confirmed By:ELISE SHELTON MD
[2016-05-08] MEDS: THIAMINE HCL 100 MG TABLET (FP) PO SCH (21:17)
[2016-05-08] MEDS: CYCLOBENZAPRINE HCL 10 MG TABLET (FP) PO PRN (21:17)
[2016-05-08] MEDS: traZODone HCL 100 MG TABLET (FP) PO SCH (21:18)
[2016-05-08] MEDS: NICOTINE POLACRILEX 4 MG GUM BUC PRN (21:19)
[2016-05-09] MEDS: METHADONE HCL 40 MG DISPERSABLE TABLET PO SCH (06:03)
[2016-05-09] MEDS: PRENATAL VITAMINS W/ FOLIC ACID TABLET (FP) PO SCH (10:15)
[2016-05-09] MEDS: NICOTINE 21 MG/24 HOURS TOPICAL PATCH TD SCH (10:15)
[2016-05-09] MEDS: CYCLOBENZAPRINE HCL 10 MG TABLET (FP) PO PRN (10:16)
[2016-05-09] MEDS: MAG HYDROX/AL HYDROX/SIMETH 30 ML UNIT-DOSE CUP PO PRN ×2 (15:19→21:42)
[2016-05-09] MEDS ORDERED: TRIMETHOBENZAMIDE HCL 200MG/2ML INJ IM PRN (17:05)
[2016-05-09] MEDS: traZODone HCL 100 MG TABLET (FP) PO SCH (21:43)
[2016-05-09] MEDS: THIAMINE HCL 100 MG TABLET (FP) PO SCH (21:43)
[2016-05-10] MEDS: METHADONE HCL 40 MG DISPERSABLE TABLET PO SCH (06:51)
[2016-05-10] MEDS: CYCLOBENZAPRINE HCL 10 MG TABLET (FP) PO PRN ×2 (10:17→21:20)
[2016-05-10] MEDS: PRENATAL VITAMINS W/ FOLIC ACID TABLET (FP) PO SCH (10:17)
[2016-05-10] MEDS: NICOTINE 21 MG/24 HOURS TOPICAL PATCH TD SCH (10:18)
[2016-05-10] MEDS: MAG HYDROX/AL HYDROX/SIMETH 30 ML UNIT-DOSE CUP PO PRN (15:47)
[2016-05-10] MEDS: THIAMINE HCL 100 MG TABLET (FP) PO SCH (21:20)
[2016-05-10] MEDS: LOPERAMIDE HCL 2 MG CAPSULE PO PRN (21:20)
[2016-05-10] MEDS: traZODone HCL 100 MG TABLET (FP) PO SCH (21:20)
[2016-05-11] MEDS: METHADONE HCL 40 MG DISPERSABLE TABLET PO SCH (06:19)
[2016-05-11] MEDS: PRENATAL VITAMINS W/ FOLIC ACID TABLET (FP) PO SCH (10:19)
[2016-05-11] MEDS: LOPERAMIDE HCL 2 MG CAPSULE PO PRN ×2 (10:19→21:36)
[2016-05-11] MEDS: CYCLOBENZAPRINE HCL 10 MG TABLET (FP) PO PRN ×2 (10:20→21:36)
[2016-05-11] MEDS: NICOTINE 21 MG/24 HOURS TOPICAL PATCH TD SCH (10:21)
[2016-05-11] MEDS: NICOTINE POLACRILEX 4 MG GUM BUC PRN (10:21)
[2016-05-11] MEDS: hydrOXYzine PAMOATE 50 MG CAPSULE (FP) PO PRN ×2 (14:54→21:37)
[2016-05-11] MEDS: traZODone HCL 100 MG TABLET (FP) PO SCH (21:36)
[2016-05-11] MEDS: THIAMINE HCL 100 MG TABLET (FP) PO SCH (21:36)
[2016-05-12] MEDS: METHADONE HCL 40 MG DISPERSABLE TABLET PO SCH (06:02)
[2016-05-12] MEDS: LOPERAMIDE HCL 2 MG CAPSULE PO PRN (06:03)
[2016-05-12] MEDS: hydrOXYzine PAMOATE 50 MG CAPSULE (FP) PO PRN ×2 (10:12→21:34)
[2016-05-12] MEDS: PRENATAL VITAMINS W/ FOLIC ACID TABLET (FP) PO SCH (10:12)
[2016-05-12] MEDS: NICOTINE POLACRILEX 4 MG GUM BUC PRN (10:12)
[2016-05-12] MEDS: CYCLOBENZAPRINE HCL 10 MG TABLET (FP) PO PRN ×2 (10:14→21:34)
[2016-05-12] MEDS: NICOTINE 21 MG/24 HOURS TOPICAL PATCH TD SCH (10:15)
[2016-05-12] MEDS: THIAMINE HCL 100 MG TABLET (FP) PO SCH (21:34)
[2016-05-12] MEDS: traZODone HCL 100 MG TABLET (FP) PO SCH (21:34)
[2016-05-13] MEDS: METHADONE HCL 40 MG DISPERSABLE TABLET PO SCH (06:10)
[2016-05-13] MEDS: hydrOXYzine PAMOATE 50 MG CAPSULE (FP) PO PRN ×2 (08:57→21:56)
[2016-05-13] MEDS: LOPERAMIDE HCL 2 MG CAPSULE PO PRN (08:57)
[2016-05-13] MEDS: NICOTINE POLACRILEX 4 MG GUM BUC PRN (08:58)
[2016-05-13] MEDS: PRENATAL VITAMINS W/ FOLIC ACID TABLET (FP) PO SCH (10:21)
[2016-05-13] MEDS: NICOTINE 21 MG/24 HOURS TOPICAL PATCH TD SCH (10:21)
[2016-05-13] MEDS: THIAMINE HCL 100 MG TABLET (FP) PO SCH (21:56)
[2016-05-13] MEDS: traZODone HCL 100 MG TABLET (FP) PO SCH (21:56)
[2016-05-13] MEDS: CYCLOBENZAPRINE HCL 10 MG TABLET (FP) PO PRN (21:56)
[2016-05-14] MEDS ORDERED: METHADONE HCL 40 MG DISPERSABLE TABLET PO SCH (06:00)
[2016-05-14 07:16] VITALS: BP 128/72; PULSE 84; TEMP 97.4
[2016-05-14] MEDS: NICOTINE 21 MG/24 HOURS TOPICAL PATCH TD SCH (09:16)
[2016-05-14] MEDS: PRENATAL VITAMINS W/ FOLIC ACID TABLET (FP) PO SCH (09:16)
[2016-05-14] MEDS: NICOTINE POLACRILEX 4 MG GUM BUC PRN (09:17)
[2016-05-14] MEDS: CYCLOBENZAPRINE HCL 10 MG TABLET (FP) PO PRN (09:18)
--- NOTE | 2016-05-14 09:26 | PN ---
Psychiatric Progress Note Vital Signs: Vital Signs Period Temp Pulse Resp BP Sys/Phillips Pulse Ox Last 24 Hr 97.4 F 84 17-18 128/72 Date of Session: 05/14/16 Chief Complaint:: AMA Discharge Note HPI: Patient addressing Alcohol and Cocaine Dependence comorbid with Opoid Dependence on Agonist Therapy, Nicotine Dependence, Substance-Induced Anxiety Disorder and Substance-Induced Sleep Disorder Current Medications: Active Medications Generic Name Dose Route Start Last Admin Trade Name Freq PRN Reason Stop Dose Admin Acetaminophen 650 mg 05/07/16 20:49 05/13/16 21:58 Tylenol - PO 650 mg Q4H PRN Administration PAIN Al Hydroxide/Mg Hydroxide 30 ml 05/07/16 20:49 05/10/16 15:47 Mylanta Oral Suspension - PO 30 ml Q6H PRN Administration DYSPEPSIA Cyclobenzaprine HCl 10 mg 05/13/16 17:39 05/14/16 09:18 Flexeril - PO 10 mg TID PRN Administration MUSCLE SPASMS Diphenhydramine HCl 50 mg 05/07/16 20:49 Benadryl - PO HSMR1 PRN INSOMNIA Eucalyptus/Menthol/Phenol/Sorbitol 1 each 05/07/16 20:49 Cepastat Lozenge - MM Q4H PRN SORE THROAT Guaifenesin 10 ml 05/07/16 20:49 Robitussin Dm - PO Q6H PRN COUGH Hydroxyzine Pamoate 50 mg 05/11/16 13:40 05/13/16 21:56 Vistaril - PO 50 mg Q4H PRN Administration ANXIETY Ibuprofen 400 mg 05/07/16 20:49 Motrin - PO Q6H PRN SEVERE PAIN Loperamide HCl 4 mg 05/07/16 20:49 05/13/16 08:57 Imodium - PO 4 mg Q6H PRN Administration DIARRHEA Magnesium Citrate 300 ml 05/07/16 20:49 Citroma - PO Q48H PRN CONSTIPATION Magnesium Hydroxide 30 ml 05/07/16 20:49 Milk Of Magnesia - PO DAILY PRN CONSTIPATION Methadone HCl 80 mg 05/14/16 06:00 05/14/16 06:12 Dolophine - PO 80 mg DAILY@0600 ARVIND Administration Nicotine 21 mg 05/08/16 10:00 05/14/16 09:16 Nicoderm Patch - TD 21 mg DAILY ARVIND Administration Nicotine Polacrilex 4 mg 05/07/16 20:51 05/14/16 09:17 Nicorette Gum - BUC 4 mg Q2H PRN Administration NICOTINE REPLACEMENT RX Multivit/Folic Acid/Iron 1 tab 05/08/16 10:00 05/14/16 09:16 Vitamins (Sjr) - PO 1 tab DAILY ARVIND Administration Pseudoephedrine/Triprolidine 1 combo 05/07/16 20:49 Actifed - PO TID PRN NASAL CONGESTION Thiamine HCl 100 mg 05/07/16 22:00 05/13/16 21:56 Vitamin B1 - PO 100 mg HS ARVIND Administration Trazodone HCl 100 mg 05/08/16 22:00 05/13/16 21:56 Desyrel - PO 100 mg HS ARVIND Administration Trimethobenzamide HCl 200 mg 05/09/16 17:05 Tigan Injection - IM Q8H PRN NAUSEA Current Side Effect: No Lab tests ordered: Yes Lab tests reviewed: Yes Provider note:: Patient wants to sign out against medical advice. Told verse writer that don family is paying for him to go to a substance abuse program in [place]. He is determined to leave despite encouragement by verse writer to stay and complete this program. He is stable for leaving AM Total face to face time:: 35 Mental Status Exam - Mental Status Exam Alert and Oriented to: Time, Place, Person Cognitive Function: Fair Patient Appearance: Well Groomed Mood: Hopeful, Euthymic Affect: Appropriate Patient Behavior: Cooperative Speech Pattern: Clear Voice Loudness: Normal Thought Process: Intact Thought Disorder: Not Present Hallucinations: Denies Suicidal Ideation: Denies Homicidal Ideation: Denies Insight/Judgement: Fair Sleep: Fair Appetite: Good Muscle strength/Tone: Normal Gait/Station: Normal Psychiatric Treatment Plan - Problem List (1) Alcohol dependence with uncomplicated withdrawal Current Visit: Yes (2) Opioid dependence with withdrawal Current Visit: No (3) Cocaine dependence Current Visit: No Qualifiers: Substance use status: uncomplicated Qualified Code(s): F14.20 - Cocaine dependence, uncomplicated (4) Opioid dependence on agonist therapy Current Visit: Yes (5) Nicotine dependence Current Visit: No Qualifiers: Nicotine product type: cigarettes Substance use status: uncomplicated Qualified Code(s): F17.210 - Nicotine dependence, cigarettes, uncomplicated (6) Substance-induced anxiety disorder Current Visit: Yes (7) Substance-induced sleep disorder Current Visit: Yes Initial treatment plan: Patient is leaving [facility]
== END 2016-05-14 09:45 | disposition left against medical advice (07) | DRG 743 ==
LOC: YASAS 17:22 → Y3W 20:56
PROVIDERS: ADMIT Psychiatry & Neurology Psychiatry; ATTEND Psychiatry & Neurology Psychiatry
PROC: HZ42ZZZ Group Counseling for Substance Abuse Treatment, Cognitive-Behavioral (ICD-10-PCS; principal; 2016-05-14)
DX: F11.23 Opioid dependence with withdrawal (principal); F10.230 Alcohol dependence with withdrawal, uncomplicated; F14.20 Cocaine dependence, uncomplicated; F17.210 Nicotine dependence, cigarettes, uncomplicated; F19.24 Other psychoactive substance dependence with psychoactive substance-induced mood disorder; F19.282 Other psychoactive substance dependence with psychoactive substance-induced sleep disorder
CPT/HCPCS: 93005; 93010

== ENCOUNTER 2018-08-23 10:31 | Emergency (ER) | payer OTHER ==
[2018-08-23 11:01] VITALS: BP 122/82; PULSE 90; TEMP 98.6; BMI 29.8
--- NOTE | 2018-08-23 11:53 | PDOC ---
History of Present Illness - General Chief Complaint: RX Refill Stated Complaint: Medication Time Seen by Provider: 08/23/18 11:34 History Source: Patient Exam Limitations: No Limitations - History of Present Illness Initial Comments: 08/23/18 11:45 Patient states missed his methadone appointment this morning as he was pulled over. Is here hoping to obtain his 120 mg of methadone that he messed.. Multiple to attempts to the methadone clinic [place] have been successful including Dr. Hemal francisco who is the on-call emergency phone number. Discussed this with patient who understands if unable to verify dosage would be unable to provide methadone Timing/Duration: unsure Associated Symptoms: reports: denies symptoms Past History - Travel Traveled outside of the country in the last 30 days: No Close contact w/someone who was outside of country & ill: No - Past Medical History Allergies/Adverse Reactions: Allergies Allergy/AdvReac Type Severity Reaction Status Date / Time No Known Allergies Allergy Verified 08/23/18 10:51 Home Medications: Ambulatory Orders Buspirone HCl [Buspar -] 15 mg PO BID #70 tablet 02/12/18 Mirtazapine [Remeron -] 15 mg PO HS #35 tablet 02/12/18 Buspirone HCl [Buspar -] 15 mg PO BID #60 tablet 03/19/18 Mirtazapine [Remeron -] 15 mg PO HS #30 tablet 03/19/18 Buspirone HCl [Buspar -] 15 mg PO BID #60 tablet 05/21/18 Mirtazapine [Remeron -] 15 mg PO HS #30 tablet 05/21/18 Anemia: No Asthma: No Cancer: No Cardiac Disorders: No CVA: No COPD: No CHF: No Dementia: No Diabetes: No GI Disorders: No Disorders: No HTN: No Hypercholesterolemia: No Kidney Stones: No Liver Disease: No Seizures: No Thyroid Disease: No - Surgical History Abdominal Surgery: No Appendectomy: Yes (AT AGE 20) Cardiac Surgery: No Lung Surgery: No Neurologic Surgery: No Orthopedic Surgery: Yes (RT HAND 2014) - Reproductive History Testicular Surgery: No - Suicide/Smoking/Psychosocial Hx Smoking History: Current every day smoker Have you smoked in the past 12 months: Yes Number of Cigarettes Smoked Daily: 20 Information on smoking cessation initiated: No 'Breaking Loose' booklet given: 05/03/16 Hx Alcohol Use: No Drug/Substance Use Hx: No Substance Use Type: Alcohol (Started drinking alcohol at age 15, consumes a fifth of scotch & 6x 12ox of beer daily. Last drink on 05/03/16), Cocaine ( Started using cocaine at age 21, consumes $50 worth 3-6 times weekly. Last used on 05/01/16), Heroin (Started using heroin at age 24, consumes 10 bags daily.Last used on 05/03/16. Attends [facility] MMTP 80 mg of methadone) Hx Substance Use Treatment: Yes (2 previous inpt detox @ [facility]. First inpt rehab) Review of Systems - Review of Systems Able to Perform ROS?: Yes Is the patient limited Moldovan proficient: Yes Constitutional: Yes: Symptoms Reported, See HPI, Chills, Malaise. No: Fever, Loss of Appetite HEENTM: No: Symptoms Reported Respiratory: No: Symptoms reported Musculoskeletal: No: Symptoms Reported Integumentary: Yes: See HPI. No: Symptoms Reported All Other Systems: Reviewed and Negative *Physical Exam - Vital Signs Last Vital Signs Temp Pulse Resp BP Pulse Ox 98.6 F 90 18 122/82 100 08/23/18 10:52 08/23/18 10:52 08/23/18 10:52 08/23/18 10:52 08/23/18 10:52 - Physical Exam General Appearance: Yes: Nourished, Appropriately Dressed. No: Apparent Distress HEENT: positive: BEATRIZ, Normal ENT Inspection, TMs Normal, Pharynx Normal Neck: positive: Supple. negative: Tender Respiratory/Chest: positive: Lungs Clear Gastrointestinal/Abdominal: positive: Soft Integumentary: positive: Dry, Warm, Pale Neurologic: positive: asp web developer II-XII NML intact, Fully Oriented, Alert, Normal Mood/ Affect, Normal Response, Motor Strength 06/15 Medical Decision Making - Medical Decision Making 08/23/18 12:12 Multiple attempts to reach contact numbers for methadone maintenance program unsuccessful,, Dr. Hemal Parks, and patient understands need for confirmation of dosing for further dosing can be given. Chooses not to wait any longer and will follow-up tomorrow methadone program. *DC/Admit/Observation/Transfer Diagnosis at time of Disposition: Methadone maintenance therapy patient - Discharge Dispostion Disposition: HOME Condition at time of disposition: Stable Decision to Admit order: No - Referrals Referrals: Jeannie Thompson [Primary Care Provider] - - Patient Instructions Printed Discharge Instructions: DI for Taking Pain Medication Additional Instructions: See methadone maintenance program tomorrow morning as scheduled - Post Discharge Activity Forms/Work/School Notes: Back to Work
== END 2018-08-23 11:56 | disposition home or self-care (01) ==
LOC: JER 10:31 → JERFT 10:31
DX: F11.20 Opioid dependence, uncomplicated (principal)
CPT/HCPCS: 99281-25

== ENCOUNTER 2018-12-25 08:14 | Inpatient (IN) | payer OTHER ==
[2018-12-25 08:52] VITALS: BMI 30.4
--- NOTE | 2018-12-25 09:22 | HP ---
CIWA Score - Admission Criteria [facility] Guidelines: Admission for Medically Managed Detox: Requires at least one of the followin. CIWA greater than 12 2. Seizures within the past 24 hours 3. Delirium tremens within the past 24 hours 4. Hallucinations within the past 24 hours 5. Acute intervention needed for co occurring medical disorder 6. Acute intervention needed for co occurring psychiatric disorder 7. Severe withdrawal that cannot be handled at a lower level of care (continued vomiting, continued diarrhea, abnormal vital signs) requiring intravenous medication and/or fluids 8. Admitting History and Physical - Smoking History Smoking history: Current every day smoker Have you smoked in the past 12 months: Yes Aproximately how many cigarettes per day: 20 - Alcohol/Substance Use Hx Alcohol Use: No Admission ROS BHS - HPI Allergies/Adverse Reactions: Allergies Allergy/AdvReac Type Severity Reaction Status Date / Time No Known Allergies Allergy Verified 12/25/18 08:43 History of Present Illness: pt here requesting rehab from cocaine and opiate use , reports use of rx meds since age 25 for r wrist/ hand frx , then heroin , current daily use 3 bags iv in UE , denies abscess , denies OD , in [facility] since 18 mo ago , current daily dose 120 mg . cocaine : 60-100 $/day via inhalation x2 yrs tobacco : 1 ppd , first age of use 15 etoh : 3 d/week , 1 x 6-pk . Exam Limitations: No Limitations - Ebola screening Have you traveled outside of the country in the last 21 days: No Have you had contact with anyone from an Ebola affected area: No Do you have a fever: No - Review of Systems Constitutional: No Symptoms Reported EENT: reports: No Symptoms Reported Respiratory: reports: No Symptoms reported Cardiac: reports: No Symptoms Reported GI: reports: Constipated : reports: No Symptoms Reported Musculoskeletal: reports: No Symptoms Reported Integumentary: reports: See HPI Neuro: reports: Headache Endocrine: reports: No Symptoms Reported Psychiatric: reports: Orientated x3 Patient History - Patient Medical History Hx Anemia: No Hx Asthma: No Hx Chronic Obstructive Pulmonary Disease (COPD): No Hx Cancer: No Hx Cardiac Disorders: No Hx Congestive Heart Failure: No Hx Hypertension: No Hx Hypercholesterolemia: No Hx Pacemaker: No HX Cerebrovascular Accident: No Hx Seizures: No Hx Dementia: No Hx Diabetes: No Hx Gastrointestinal Disorders: No Hx Liver Disease: No Hx Genitourinary Disorders: No Hx Sexually Transmitted Disorders: No Hx Renal Disease (ESRD): No Hx Thyroid Disease: No Hx Human Immunodeficiency Virus (HIV): No (LAST 03/30 NEGATIVE) Hx Hepatitis C: No Hx Depression: Yes Hx Suicide Attempt: No Hx Bipolar Disorder: No Hx Schizophrenia: No - Patient Surgical History Past Surgical History: Yes Hx Neurologic Surgery: No Hx Cataract Extraction: No Hx Cardiac Surgery: No Hx Lung Surgery: No Hx Breast Surgery: No Hx Breast Biopsy: No Hx Abdominal Surgery: No Hx Appendectomy: Yes (AT AGE 20) Hx Orthopedic Surgery: Yes (RT HAND 2014) Anesthesia Reaction: No - PPD History Date: 03/25/16 Results: 0 MM - Smoking Cessation Smoking history: Current every day smoker Have you smoked in the past 12 months: Yes Aproximately how many cigarettes per day: 20 Hx Chewing Tobacco Use: No Initiated information on smoking cessation: Yes 'Breaking Loose' booklet given: 12/25/18 - Substances abused Cocaine Substance route: Smoking Frequency: Daily Amount used: $50.00 Age of first use: 25 Date of last use: 12/22/18 Heroin Substance route: Injection Frequency: 1-3 times last 30 days Amount used: $50 Age of first use: 25 Date of last use: 12/22/18 Admission Physical Exam BHS - Vital Signs Vital Signs: Vital Signs - 24 hr 12/25/18 08:45 Temperature 98.0 F Pulse Rate 65 Respiratory 18 Rate Blood Pressure 121/55 L - Physical General Appearance: Yes: No Apparent Distress HEENTM: Yes: EOMI, Hearing grossly Normal, Normocephalic, Normal Voice Respiratory: Yes: Chest Non-Tender, Lungs Clear, Normal Breath Sounds, No Respiratory Distress, No Accessory Muscle Use Neck: Yes: No masses,lesions,Nodules, Trachea in good position Cardiology: Yes: Regular Rhythm, Regular Rate, S1, S2 Abdominal: Yes: Normal Bowel Sounds, Non Tender, Soft Musculoskeletal: Yes: Gait Steady Extremities: Yes: Normal Range of Motion, Non-Tender Neurological: Yes: Fully Oriented, Alert, Motor Strength 5/5, Normal Mood/Affect Integumentary: Yes: Warm, Track Yang - Diagnostic (1) Cocaine dependence Current Visit: Yes Status: Chronic Qualifiers: Substance use status: uncomplicated Qualified Code(s): F14.20 - Cocaine dependence, uncomplicated (2) Opioid dependence on agonist therapy Current Visit: Yes Status: Chronic (3) Nicotine dependence Current Visit: Yes Status: Chronic Qualifiers: Nicotine product type: cigarettes Inpatient Rehab Admission - Rehab Decision to Admit Inpatient rehab admission?: Yes - Initial Determination Are CD services needed?: Yes Free of communicable disease: Yes Not in need of hospitalization: Yes - Rehab Admission Criteria Previous failed treatment: Yes Poor recovery environment: No Comorbidities: No Lacks judgement: Yes Patient is meeting Inpatient Rehab admission criteria:: Yes
[2018-12-25] MEDS ORDERED: ACETAMINOPHEN 325 MG TABLET (FP) PO PRN (09:23)
[2018-12-25] MEDS ORDERED: MAGNESIUM CITRATE 300 ML BOTTLE PO PRN (09:23)
[2018-12-25] MEDS ORDERED: MAGNESIUM HYDROX 2400MG/30ML ORAL SUSPENSION 30 ML CUP PO PRN (09:23)
[2018-12-25] MEDS ORDERED: guaiFENesin 200 MG/10 ML 10 ML UNIT-DOSE CUPS PO PRN (09:23)
[2018-12-25] MEDS ORDERED: LOPERAMIDE HCL 2 MG CAPSULE PO PRN (09:23)
[2018-12-25] MEDS ORDERED: P-EPHED 60MG/TRIPROLIDI 2.5MG TABLET PO PRN (09:23)
[2018-12-25] MEDS ORDERED: IBUPROFEN 400 MG TABLET (FP) PO PRN (09:23)
[2018-12-25] MEDS ORDERED: MAG HYDROX/AL HYDROX/SIMETH 30 ML UNIT-DOSE CUP PO PRN (09:23)
[2018-12-25] MEDS ORDERED: MENTHOL/PHENOL 1 EACH UD MM PRN (09:23)
[2018-12-25] MEDS: PRENATAL VITAMINS W/ FOLIC ACID TABLET (FP) PO SCH (10:50)
[2018-12-25 14:46] LABS: HEMATOCRIT 43.6 % (35.4-49); HEMOGLOBIN 14.4 GM/dL (11.7-16.9); MCH 26.1 pg (25.7-33.7); MCHC 33.1 g/dl (32.0-35.9); MEAN CELL VOLUME 78.8 fl (80-96); MEAN PLT VOLUME 8.9 fl (7.5-11.1); PLATELET COUNT 243 K/MM3 (134-434); RBC 5.53 M/mm3 (4.00-5.60); RDW 14.2 % (11.9-15.9); WHITE BLOOD COUNT 6.8 K/mm3 (4.0-10.0)
[2018-12-25 14:51] LABS: ALBUMIN 4.7 g/dl (3.4-5.0); BILIRUBIN,TOTAL 0.5 mg/dL (0.2-1); CALCIUM 9.4 mg/dL (8.5-10.1); CREATININE 0.8 mg/dL (0.55-1.3); POTASSIUM 4.3 mmol/L (3.5-5.1)
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
[2018-12-25] MEDS: NICOTINE POLACRILEX 2 MG GUM BUC PRN (20:48)
[2018-12-25] MEDS: THIAMINE HCL 100 MG TABLET (FP) PO SCH (21:04)
[2018-12-25] MEDS: MELATONIN 5 MG TABLETS PO PRN (21:04)
[2018-12-25] MEDS: MIRTAZAPINE 15 MG TABLET (FP) PO SCH (21:04)
[2018-12-26] MEDS ORDERED: METHADONE HCL 40 MG DISPERSABLE TABLET PO SCH (06:00)
[2018-12-26] MEDS: PRENATAL VITAMINS W/ FOLIC ACID TABLET (FP) PO SCH (10:20)
[2018-12-26 10:25] LABS: PH,URINE 5.5 (5.0-8.0); URINE APPEARANCE CLEAR; URINE BILIRUBIN NEGATIVE (NEGATIVE); URINE COLOR YELLOW; URINE GLUCOSE (UA) NEGATIVE (NEGATIVE); URINE KETONE NEGATIVE (NEGATIVE); URINE LEUK ESTERASE NEGATIVE (NEGATIVE); URINE NITRITE NEGATIVE (NEGATIVE); URINE PROTEIN NEGATIVE (NEGATIVE); URINE UROBILINOGEN 0.2 mg/dL (0.2-1.0)
[2018-12-26] MEDS: NICOTINE POLACRILEX 2 MG GUM BUC PRN (18:31)
[2018-12-26] MEDS: THIAMINE HCL 100 MG TABLET (FP) PO SCH (21:10)
[2018-12-26] MEDS: MIRTAZAPINE 15 MG TABLET (FP) PO SCH (21:11)
[2018-12-26] MEDS: MELATONIN 5 MG TABLETS PO PRN (21:11)
[2018-12-27] MEDS: METHADONE HCL 40 MG DISPERSABLE TABLET PO SCH (09:34)
[2018-12-27] MEDS: NICOTINE POLACRILEX 2 MG GUM BUC PRN ×2 (09:35→14:44)
[2018-12-27] MEDS: PRENATAL VITAMINS W/ FOLIC ACID TABLET (FP) PO SCH (09:35)
[2018-12-27] MEDS: NICOTINE 14 MG/24 HOURS TOPICAL PATCH TD SCH (10:20)
[2018-12-27] MEDS: MIRTAZAPINE 15 MG TABLET (FP) PO SCH (21:49)
[2018-12-27] MEDS: THIAMINE HCL 100 MG TABLET (FP) PO SCH (21:49)
[2018-12-27] MEDS: MELATONIN 5 MG TABLETS PO PRN (21:49)
[2018-12-28] MEDS: NICOTINE 14 MG/24 HOURS TOPICAL PATCH TD SCH (10:04)
[2018-12-28] MEDS: PRENATAL VITAMINS W/ FOLIC ACID TABLET (FP) PO SCH (10:04)
[2018-12-28] MEDS: METHADONE HCL 40 MG DISPERSABLE TABLET PO SCH (10:04)
[2018-12-28] MEDS: NICOTINE POLACRILEX 2 MG GUM BUC PRN ×3 (10:07→21:39)
[2018-12-28] MEDS ORDERED: PT OWN MED DRAWER 7, Y5N ONE (18:56)
[2018-12-28] MEDS: MELATONIN 5 MG TABLETS PO PRN (21:38)
[2018-12-28] MEDS: THIAMINE HCL 100 MG TABLET (FP) PO SCH (21:38)
[2018-12-28] MEDS: MIRTAZAPINE 15 MG TABLET (FP) PO SCH (21:38)
[2018-12-29] MEDS: NICOTINE POLACRILEX 2 MG GUM BUC PRN ×5 (06:53→22:10)
[2018-12-29] MEDS ORDERED: PANTOPRAZOLE 20 MG TABLET (FP) PO SCH (10:00)
[2018-12-29] MEDS: PRENATAL VITAMINS W/ FOLIC ACID TABLET (FP) PO SCH (10:10)
[2018-12-29] MEDS: METHADONE HCL 40 MG DISPERSABLE TABLET PO SCH (10:10)
[2018-12-29] MEDS: NICOTINE 14 MG/24 HOURS TOPICAL PATCH TD SCH (10:10)
[2018-12-29] MEDS ORDERED: PT OWN MED DRAWER 7, Y5N ONE (10:48)
[2018-12-29] MEDS: DOCUSATE SODIUM 100 MG CAPSULE (FP) PO SCH (14:37)
[2018-12-29] MEDS: SELENIUM SULFIDE 2.25% 180 ML SHAMPOO TP SCH (18:50)
[2018-12-29] MEDS: MIRTAZAPINE 15 MG TABLET (FP) PO SCH (21:25)
[2018-12-29] MEDS: THIAMINE HCL 100 MG TABLET (FP) PO SCH (21:25)
[2018-12-29] MEDS: MELATONIN 5 MG TABLETS PO PRN (21:25)
[2018-12-30] MEDS: PRENATAL VITAMINS W/ FOLIC ACID TABLET (FP) PO SCH (10:11)
[2018-12-30] MEDS: NICOTINE POLACRILEX 2 MG GUM BUC PRN ×4 (10:12→21:13)
[2018-12-30] MEDS: NICOTINE 14 MG/24 HOURS TOPICAL PATCH TD SCH (10:12)
[2018-12-30] MEDS: METHADONE HCL 40 MG DISPERSABLE TABLET PO SCH (10:12)
[2018-12-30] MEDS: SELENIUM SULFIDE 2.25% 180 ML SHAMPOO TP SCH (10:12)
[2018-12-30] MEDS: DOCUSATE SODIUM 100 MG CAPSULE (FP) PO SCH (10:12)
[2018-12-30] MEDS: MELATONIN 5 MG TABLETS PO PRN (21:13)
[2018-12-30] MEDS: MIRTAZAPINE 15 MG TABLET (FP) PO SCH (21:13)
[2018-12-30] MEDS: THIAMINE HCL 100 MG TABLET (FP) PO SCH (21:13)
[2018-12-31] MEDS: NICOTINE POLACRILEX 2 MG GUM BUC PRN ×3 (08:05→22:18)
[2018-12-31] MEDS ORDERED: PT OWN MED DRAWER 7, Y5N ONE (08:27)
[2018-12-31] MEDS: NICOTINE 14 MG/24 HOURS TOPICAL PATCH TD SCH (10:06)
[2018-12-31] MEDS: SELENIUM SULFIDE 2.25% 180 ML SHAMPOO TP SCH (10:06)
[2018-12-31] MEDS: DOCUSATE SODIUM 100 MG CAPSULE (FP) PO SCH (10:06)
[2018-12-31] MEDS: PRENATAL VITAMINS W/ FOLIC ACID TABLET (FP) PO SCH (10:06)
[2018-12-31] MEDS: METHADONE HCL 40 MG DISPERSABLE TABLET PO SCH (10:09)
[2018-12-31] MEDS: THIAMINE HCL 100 MG TABLET (FP) PO SCH (22:17)
[2018-12-31] MEDS: MIRTAZAPINE 15 MG TABLET (FP) PO SCH (22:17)
[2018-12-31] MEDS: MELATONIN 5 MG TABLETS PO PRN (22:18)
[2019-01-01] MEDS: NICOTINE 14 MG/24 HOURS TOPICAL PATCH TD SCH (10:18)
[2019-01-01] MEDS: SELENIUM SULFIDE 2.25% 180 ML SHAMPOO TP SCH (10:18)
[2019-01-01] MEDS: PRENATAL VITAMINS W/ FOLIC ACID TABLET (FP) PO SCH (10:18)
[2019-01-01] MEDS: DOCUSATE SODIUM 100 MG CAPSULE (FP) PO SCH (10:18)
[2019-01-01] MEDS ORDERED: METHADONE HCL 40 MG DISPERSABLE TABLET PO SCH (10:45)
[2019-01-01] MEDS: THIAMINE HCL 100 MG TABLET (FP) PO SCH (21:17)
[2019-01-01] MEDS: MIRTAZAPINE 15 MG TABLET (FP) PO SCH (21:17)
[2019-01-01] MEDS: MELATONIN 5 MG TABLETS PO PRN (21:17)
[2019-01-02] MEDS: PRENATAL VITAMINS W/ FOLIC ACID TABLET (FP) PO SCH (10:04)
[2019-01-02] MEDS: DOCUSATE SODIUM 100 MG CAPSULE (FP) PO SCH (10:04)
[2019-01-02] MEDS: NICOTINE 14 MG/24 HOURS TOPICAL PATCH TD SCH (10:04)
[2019-01-02] MEDS: METHADONE HCL 40 MG DISPERSABLE TABLET PO SCH (10:05)
[2019-01-02] MEDS: SELENIUM SULFIDE 2.25% 180 ML SHAMPOO TP SCH (10:07)
[2019-01-02] MEDS: NICOTINE POLACRILEX 2 MG GUM BUC PRN (12:32)
[2019-01-02] MEDS: MIRTAZAPINE 15 MG TABLET (FP) PO SCH (21:39)
[2019-01-02] MEDS: hydrOXYzine PAMOATE 25 MG CAPSULE (FP) PO PRN (21:39)
[2019-01-02] MEDS: MELATONIN 5 MG TABLETS PO PRN (21:39)
[2019-01-02] MEDS: THIAMINE HCL 100 MG TABLET (FP) PO SCH (21:39)
[2019-01-03] MEDS: NICOTINE POLACRILEX 2 MG GUM BUC PRN ×4 (08:50→21:11)
[2019-01-03] MEDS: DOCUSATE SODIUM 100 MG CAPSULE (FP) PO SCH (10:15)
[2019-01-03] MEDS: PRENATAL VITAMINS W/ FOLIC ACID TABLET (FP) PO SCH (10:15)
[2019-01-03] MEDS: hydrOXYzine PAMOATE 25 MG CAPSULE (FP) PO PRN ×3 (10:15→21:10)
[2019-01-03] MEDS: NICOTINE 14 MG/24 HOURS TOPICAL PATCH TD SCH (10:16)
[2019-01-03] MEDS: METHADONE HCL 40 MG DISPERSABLE TABLET PO SCH (10:16)
[2019-01-03] MEDS: SELENIUM SULFIDE 2.25% 180 ML SHAMPOO TP SCH (10:17)
[2019-01-03] MEDS: MIRTAZAPINE 15 MG TABLET (FP) PO SCH (21:10)
[2019-01-03] MEDS: THIAMINE HCL 100 MG TABLET (FP) PO SCH (21:10)
[2019-01-04] MEDS: PRENATAL VITAMINS W/ FOLIC ACID TABLET (FP) PO SCH (09:40)
[2019-01-04] MEDS: METHADONE HCL 40 MG DISPERSABLE TABLET PO SCH (09:40)
[2019-01-04] MEDS: DOCUSATE SODIUM 100 MG CAPSULE (FP) PO SCH (09:40)
[2019-01-04] MEDS: hydrOXYzine PAMOATE 25 MG CAPSULE (FP) PO PRN ×2 (09:40→18:53)
[2019-01-04] MEDS: SELENIUM SULFIDE 2.25% 180 ML SHAMPOO TP SCH (09:41)
[2019-01-04] MEDS: NICOTINE 14 MG/24 HOURS TOPICAL PATCH TD SCH (09:41)
[2019-01-04] MEDS: NICOTINE POLACRILEX 2 MG GUM BUC PRN ×4 (09:41→21:20)
[2019-01-04] MEDS: MIRTAZAPINE 15 MG TABLET (FP) PO SCH (21:19)
[2019-01-04] MEDS: THIAMINE HCL 100 MG TABLET (FP) PO SCH (21:20)
[2019-01-05] MEDS: METHADONE HCL 40 MG DISPERSABLE TABLET PO SCH (10:08)
[2019-01-05] MEDS: PRENATAL VITAMINS W/ FOLIC ACID TABLET (FP) PO SCH (10:10)
[2019-01-05] MEDS: DOCUSATE SODIUM 100 MG CAPSULE (FP) PO SCH (10:10)
[2019-01-05] MEDS: NICOTINE 14 MG/24 HOURS TOPICAL PATCH TD SCH (10:10)
[2019-01-05] MEDS: hydrOXYzine PAMOATE 25 MG CAPSULE (FP) PO PRN ×2 (10:10→21:16)
[2019-01-05] MEDS: SELENIUM SULFIDE 2.25% 180 ML SHAMPOO TP SCH (10:13)
--- NOTE | 2019-01-05 16:01 | EKG ---
Test Reason : Blood Pressure : / mmHG Vent. Rate : 069 BPM Atrial Rate : 069 BPM P-R Int : 148 ms QRS Dur : 084 ms QT Int : 428 ms P-R-T Axes : 022 050 040 degrees QTc Int : 458 ms NORMAL SINUS RHYTHM NORMAL ECG WHEN COMPARED WITH ECG OF 08-MAY-2016 04:51, NO SIGNIFICANT CHANGE WAS FOUND Confirmed by EILSE SHELTON MD ([id number]) on 01/05/2019 4:01:16 PM Referred By: PUMA PRYOR Confirmed By:ELISE SHELTON MD
[2019-01-05] MEDS: NICOTINE POLACRILEX 2 MG GUM BUC PRN (17:29)
[2019-01-05] MEDS: THIAMINE HCL 100 MG TABLET (FP) PO SCH (21:16)
[2019-01-05] MEDS: MELATONIN 5 MG TABLETS PO PRN (21:16)
[2019-01-05] MEDS: MIRTAZAPINE 15 MG TABLET (FP) PO SCH (21:16)
[2019-01-06] MEDS: METHADONE HCL 40 MG DISPERSABLE TABLET PO SCH (10:20)
[2019-01-06] MEDS: NICOTINE POLACRILEX 2 MG GUM BUC PRN ×4 (10:21→19:02)
[2019-01-06] MEDS: hydrOXYzine PAMOATE 25 MG CAPSULE (FP) PO PRN (10:21)
[2019-01-06] MEDS: DOCUSATE SODIUM 100 MG CAPSULE (FP) PO SCH (10:21)
[2019-01-06] MEDS: PRENATAL VITAMINS W/ FOLIC ACID TABLET (FP) PO SCH (10:21)
[2019-01-06] MEDS: NICOTINE 14 MG/24 HOURS TOPICAL PATCH TD SCH (10:21)
[2019-01-06] MEDS: MIRTAZAPINE 15 MG TABLET (FP) PO SCH (21:34)
[2019-01-06] MEDS: MELATONIN 5 MG TABLETS PO PRN (21:34)
[2019-01-06] MEDS: THIAMINE HCL 100 MG TABLET (FP) PO SCH (21:34)
[2019-01-07] MEDS: NICOTINE POLACRILEX 2 MG GUM BUC PRN (07:27)
[2019-01-07] MEDS ORDERED: PT OWN MED DRAWER 7, Y5N ONE ×2 (08:38→10:51)
[2019-01-07] MEDS ORDERED: SODIUM CHLORIDE NASAL SPRAY 44 ML BOTTLE NS PRN (09:18)
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
[2019-01-07] MEDS ORDERED: ARTIFICIAL TEARS (POLYVINYL ALCOHOL) OPTH DROPS OU PRN (09:22)
[2019-01-07] MEDS: DOCUSATE SODIUM 100 MG CAPSULE (FP) PO SCH (10:48)
[2019-01-07] MEDS: PRENATAL VITAMINS W/ FOLIC ACID TABLET (FP) PO SCH (10:48)
[2019-01-07] MEDS: NICOTINE 14 MG/24 HOURS TOPICAL PATCH TD SCH (10:48)
[2019-01-07] MEDS: hydrOXYzine PAMOATE 25 MG CAPSULE (FP) PO PRN (10:49)
[2019-01-07] MEDS: CHLORHEXIDINE GLUCONATE 118 ML MOUTHWASH MM SCH ×2 (10:52→21:07)
[2019-01-07] MEDS: METHADONE HCL 40 MG DISPERSABLE TABLET PO SCH (10:52)
[2019-01-07] MEDS: NICOTINE POLACRILEX 4 MG GUM BUC PRN (17:38)
[2019-01-07] MEDS: MELATONIN 5 MG TABLETS PO PRN (21:06)
[2019-01-07] MEDS: THIAMINE HCL 100 MG TABLET (FP) PO SCH (21:06)
[2019-01-07] MEDS: MIRTAZAPINE 15 MG TABLET (FP) PO SCH (21:06)
[2019-01-08] MEDS: DOCUSATE SODIUM 100 MG CAPSULE (FP) PO SCH (09:57)
[2019-01-08] MEDS: NICOTINE 14 MG/24 HOURS TOPICAL PATCH TD SCH (09:58)
[2019-01-08] MEDS: PRENATAL VITAMINS W/ FOLIC ACID TABLET (FP) PO SCH (09:58)
[2019-01-08] MEDS ORDERED: METHADONE HCL 40 MG DISPERSABLE TABLET PO SCH (10:45)
[2019-01-08] MEDS ORDERED: METHADONE HCL 10 MG TABLET PO ONE (11:04)
[2019-01-08] MEDS: CHLORHEXIDINE GLUCONATE 118 ML MOUTHWASH MM SCH ×2 (11:07→21:39)
[2019-01-08] MEDS ORDERED: PT OWN MED DRAWER 7, Y5N ONE ×2 (12:42→21:40)
[2019-01-08] MEDS: NICOTINE POLACRILEX 4 MG GUM BUC PRN ×2 (15:55→22:08)
[2019-01-08] MEDS: MELATONIN 5 MG TABLETS PO PRN (21:39)
[2019-01-08] MEDS: THIAMINE HCL 100 MG TABLET (FP) PO SCH (21:39)
[2019-01-08] MEDS: MIRTAZAPINE 15 MG TABLET (FP) PO SCH (21:39)
[2019-01-09] MEDS: METHADONE HCL 40 MG DISPERSABLE TABLET PO SCH (09:49)
[2019-01-09] MEDS: DOCUSATE SODIUM 100 MG CAPSULE (FP) PO SCH (09:49)
[2019-01-09] MEDS: NICOTINE 14 MG/24 HOURS TOPICAL PATCH TD SCH (09:49)
[2019-01-09] MEDS: PRENATAL VITAMINS W/ FOLIC ACID TABLET (FP) PO SCH (09:49)
[2019-01-09] MEDS: CHLORHEXIDINE GLUCONATE 118 ML MOUTHWASH MM SCH ×2 (09:50→21:45)
[2019-01-09] MEDS: NICOTINE POLACRILEX 4 MG GUM BUC PRN ×2 (09:50→12:09)
[2019-01-09] MEDS: hydrOXYzine PAMOATE 25 MG CAPSULE (FP) PO PRN (09:50)
[2019-01-09] MEDS ORDERED: PT OWN MED DRAWER 7, Y5N ONE (12:10)
[2019-01-09] MEDS: MIRTAZAPINE 15 MG TABLET (FP) PO SCH (21:45)
[2019-01-09] MEDS: THIAMINE HCL 100 MG TABLET (FP) PO SCH (21:47)
[2019-01-10] MEDS: CHLORHEXIDINE GLUCONATE 118 ML MOUTHWASH MM SCH ×2 (09:31→21:34)
[2019-01-10] MEDS: NICOTINE 14 MG/24 HOURS TOPICAL PATCH TD SCH (09:32)
[2019-01-10] MEDS: METHADONE HCL 40 MG DISPERSABLE TABLET PO SCH (09:32)
[2019-01-10] MEDS: DOCUSATE SODIUM 100 MG CAPSULE (FP) PO SCH (09:32)
[2019-01-10] MEDS: PRENATAL VITAMINS W/ FOLIC ACID TABLET (FP) PO SCH (09:32)
[2019-01-10] MEDS: MIRTAZAPINE 15 MG TABLET (FP) PO SCH (21:34)
[2019-01-10] MEDS: MELATONIN 5 MG TABLETS PO PRN (21:35)
[2019-01-10] MEDS: THIAMINE HCL 100 MG TABLET (FP) PO SCH (21:35)
[2019-01-11] MEDS: NICOTINE 14 MG/24 HOURS TOPICAL PATCH TD SCH (09:42)
[2019-01-11] MEDS: DOCUSATE SODIUM 100 MG CAPSULE (FP) PO SCH (09:42)
[2019-01-11] MEDS: PRENATAL VITAMINS W/ FOLIC ACID TABLET (FP) PO SCH (09:43)
[2019-01-11] MEDS: CHLORHEXIDINE GLUCONATE 118 ML MOUTHWASH MM SCH ×2 (09:43→21:19)
[2019-01-11] MEDS: METHADONE HCL 40 MG DISPERSABLE TABLET PO SCH (09:43)
[2019-01-11] MEDS: NICOTINE POLACRILEX 4 MG GUM BUC PRN ×2 (17:27→19:35)
[2019-01-11] MEDS: MIRTAZAPINE 15 MG TABLET (FP) PO SCH (21:07)
[2019-01-11] MEDS: THIAMINE HCL 100 MG TABLET (FP) PO SCH (21:07)
[2019-01-11] MEDS: MELATONIN 5 MG TABLETS PO PRN (21:07)
[2019-01-11] MEDS: hydrOXYzine PAMOATE 25 MG CAPSULE (FP) PO PRN (21:08)
--- NOTE | 2019-01-12 06:23 | PN ---
[facility] Progress Note Note: Patient is scheduled for discharge today. Scripts for 30 days supply of medications(Remeron 15 mg/hs, Buspar 15 mg/bid) are electronically transmitted to [facility] at [address] [place] [address]
[2019-01-12 06:52] VITALS: BP 133/73; PULSE 61; TEMP 98
[2019-01-12] MEDS: CHLORHEXIDINE GLUCONATE 118 ML MOUTHWASH MM SCH (09:03)
[2019-01-12] MEDS: PRENATAL VITAMINS W/ FOLIC ACID TABLET (FP) PO SCH (09:03)
[2019-01-12] MEDS: NICOTINE 14 MG/24 HOURS TOPICAL PATCH TD SCH (09:03)
[2019-01-12] MEDS: METHADONE HCL 40 MG DISPERSABLE TABLET PO SCH (09:03)
[2019-01-12] MEDS: DOCUSATE SODIUM 100 MG CAPSULE (FP) PO SCH (09:03)
--- NOTE | 2019-01-12 11:12 | DS ---
[facility] Rehab Discharge Summary - [facility] Rehab Discharge Summary Admission Date: 12/25/18 Discharge Date: 01/12/19 - History Present History: Cocaine dependence, Opioid dependence - Discharge Physical Exam Vital Signs: Vital Signs Temperature 98.0 F 01/12/19 06:51 Pulse Rate 61 01/12/19 06:51 Respiratory Rate 18 01/12/19 06:51 Blood Pressure 133/73 01/12/19 06:51 O2 Sat by Pulse Oximetry (%) Pertinent Admission Physical Exam Findings: ROS: DENIES OPIOD/NGHIA CRAVINGS, ANXIETY, CHEST PAIN, SOB AND SWEATING. PE: ALERT AND ORIENTED X 3 SKIN WARM AND DRY CAR S1S2 RESP CTA BL GI NT, ND EXT FULL ROM, AMB AD RENATO CALM, DENIES SI/HI - Treatment Discharge Condition: Discharge condition good Hospital Course: PATIENT COMPLETED REHAB TODAY FOR COCAINE AND OPIOD DEPENDENCE. PATIENT ATTENDED GROUP MEETINGS, 1:1 SESSIONS WITH COUNSELOR AND EVALUATION AND TREATMENT WITH PSYCH TEAM. PATIENT STATES HE ACCOMPLISHED ALL REHAB GAOLS AND IS ABLE TO IDENTIFY POSITIVE COPING MECHANISMS. PATIENT IS MEDICALLY STABLE AND DENIES SI/HI. ENCOURAGED TO FOLLOW UP WITH PCP AND ATTEND GROUP MEETINGS WITH AA /NA TO PREVENT RELAPSE. PATIENT TO FOLLOW UP FOR AFTERCARE WITH [facility]. Vital Signs Temperature 98.0 F 01/12/19 06:51 Pulse Rate 61 01/12/19 06:51 Respiratory Rate 18 01/12/19 06:51 Blood Pressure 133/73 01/12/19 06:51 O2 Sat by Pulse Oximetry (%) Home Medications Medication Instructions Recorded Buspirone HCl [Buspar -] 15 mg PO BID #60 tablet 01/12/19 Mirtazapine [Remeron -] 15 mg PO HS #30 tablet 01/12/19 Laboratory Tests 12/25/18 12/25/18 12/25/18 10:20 10:20 10:20 WBC 6.8 RBC 5.53 Hgb 14.4 Hct 43.6 MCV 78.8 L MCH 26.1 MCHC 33.1 RDW 14.2 Plt Count 243 MPV 8.9 Sodium 137 Potassium 4.3 Chloride 103 Carbon Dioxide 27 Anion Gap 7 L BUN 13.0 Creatinine 0.8 Est GFR (CKD-EPI)AfAm 140.90 Est GFR (CKD-EPI)NonAf 121.57 Random Glucose 68 L Calcium 9.4 Total Bilirubin 0.5 AST 18 ALT 20 Alkaline Phosphatase 81 Total Protein 8.0 Albumin 4.7 Urine Color Urine Appearance Urine pH Ur Specific [place] Urine Protein Urine Glucose (UA) Urine Ketones Urine Blood Urine Nitrite Urine Bilirubin Urine Urobilinogen Ur Leukocyte Esterase RPR Titer Nonreactive 12/26/18 08:30 WBC RBC Hgb Hct MCV MCH MCHC RDW Plt Count MPV Sodium Potassium Chloride Carbon Dioxide Anion Gap BUN Creatinine Est GFR (CKD-EPI)AfAm Est GFR (CKD-EPI)NonAf Random Glucose Calcium Total Bilirubin AST ALT Alkaline Phosphatase Total Protein Albumin Urine Color Yellow Urine Appearance Clear Urine pH 5.5 Ur Specific [place] 1.017 Urine Protein Negative Urine Glucose (UA) Negative Urine Ketones Negative Urine Blood Negative Urine Nitrite Negative Urine Bilirubin Negative Urine Urobilinogen 0.2 Ur Leukocyte Esterase Negative RPR Titer - Medication Discharge Medications: Ambulatory Orders Buspirone HCl [Buspar -] 15 mg PO BID #60 tablet 01/12/19 Mirtazapine [Remeron -] 15 mg PO HS #30 tablet 01/12/19 - Medication-Assisted Treatment (MAT) Medication-Assisted Treatment (MAT): No MAT Follow-up Referral: [facility] - Discharge Instructions Diet, activity, other medical instructions: Diet: REG MINA Activity: TOLERATED Other medical instructions: FOLLOW UP WITH PCP RECOMMENDED - Follow-up Referral Minutes to complete discharge: 30 - AMA Did Patient Leave Against Medical Advice: No
== END 2019-01-12 09:20 | disposition home or self-care (01) | DRG 772 ==
LOC: YASAS 08:14 → Y3W 09:46
PROVIDERS: ADMIT Neuromusculoskeletal Medicine & OMM; ATTEND Neuromusculoskeletal Medicine & OMM
PROC: HZ42ZZZ Group Counseling for Substance Abuse Treatment, Cognitive-Behavioral (ICD-10-PCS; principal; 2018-12-25)
DX: F14.20 Cocaine dependence, uncomplicated (principal); F11.20 Opioid dependence, uncomplicated; F17.210 Nicotine dependence, cigarettes, uncomplicated; F19.280 Other psychoactive substance dependence with psychoactive substance-induced anxiety disorder; F19.282 Other psychoactive substance dependence with psychoactive substance-induced sleep disorder; F32.9 Major depressive disorder, single episode, unspecified
CPT/HCPCS: 36415; 80053; 81003; 85027; 86593; 93005; 93010